=== PATIENT | female | born 1930 | race Caucasian/White ===

== ENCOUNTER 2018-01-06 14:48 | Inpatient (IN) | payer OTHER ==
[2018-01-06] MEDS ORDERED: IPRATROPIUM/ALBUTEROL 3 ML DEYVIAL IH ONE (15:05)
--- NOTE | 2018-01-06 15:09 | EDPHY ---
H & P Time Seen by Provider: 01/06/18 14:58 HPI/ROS: CHIEF COMPLAINT: Shortness of breath, chest discomfort, fatigue HISTORY OF PRESENT ILLNESS: Patient is a 87-year-old female with a history of previous pneumonia who presents emergency department feeling short of breath. She states she has developed a cough 3 days ago. Cough is nonproductive. Patient has also had increased generalized weakness. Mild anterior chest discomfort that is constant. It does not radiate. Patient has sick contacts at home. No measured fever but she feels"cold."No leg pain or swelling. No recent travel. The patient does not smoke. REVIEW OF SYSTEMS: My complete review of systems is negative except as mentioned in the HPI. Past Medical/Surgical History: Includes hypertension, pneumonia Social history: The patient does not smoke Smoking Status: Never smoked Physical Exam: 37.3, 91/53, 73, 20, 88% on room air GENERAL: No acute distress, alert. HEENT: Eyes normal to inspection, normal pharynx, no signs of dehydration. NECK: [No thyromegaly, no lymphadenopathy, supple. RESPIRATORY: Coarse breath sounds bilaterally. Frequent coughing. No rales, rhonchi or wheezing. CVS: Regular rate and rhythm, no rubs, murmurs, or gallops. ABDOMEN: Soft, nontender, nondistended, no organomegaly. BACK: Normal to inspection, no CVA tenderness. SKIN: Normal color, no rash, warm, dry. No pallor. EXTREMITIES: No pedal edema, no calf tenderness, no Homans sign or cords, no joint swelling. NEURO/PSYCH: Alert and oriented x3, normal mood and affect, normal motor sensory exam. Constitutional: Initial Vital Signs Temperature (C) 37.3 C 01/06/18 14:54 Heart Rate 73 01/06/18 14:54 Respiratory Rate 20 01/06/18 14:54 Blood Pressure 91/53 L 01/06/18 14:54 O2 Sat (%) 88 L 01/06/18 14:54 O2 Delivery Mode Nasal Cannula O2 (L/minute) 2 Allergies/Adverse Reactions: Sulfa (Sulfonamide Antibiotics) Allergy (Verified 01/06/18 14:53) Home Medications: Medication Instructions Recorded Unobtainable 01/06/18 Medical Decision Making - Diagnostics Imaging Results: Imaging Impressions Chest X-Ray 01/06/18 14:58 Impression: Elevated right hemidiaphragm with patchy atelectasis of the lung bases bilaterally.. ED Course/Re-evaluation: In the emergency department I discussed possible etiologies with the patient. I answered all her questions. IV was placed. Laboratory studies, EKG and chest x-ray were obtained. Patient was given a DuoNeb. EKG: Sinus rhythm at 80. Normal axis. Normal intervals. There are flipped T- waves in I and aVL. 1518: Lactic acid 1.4. Patient's white count was elevated at 15. Hematocrit was low at 33. Platelets were 382. Patient's sodium was 137. Potassium 4.5. Carbon dioxide was low at 20. Anion gap elevated at 19. BUN was 39 %period% creatinine was 2.1. This is up from her previous creatinine 1.5. BNP was elevated at 1030. Troponin was 0.016 The recheck the patient after the DuoNeb. She states that she feels slightly better. Chest x-ray: Please refer the dictated report. Patient has bilateral atelectasis as read by the radiologist. I was concerned that this could represent bilateral lower lobe infiltrate. I discussed the results with the patient and family. I answered all her questions. Differential Diagnosis: My differential includes but is not limited to pneumonia, bronchitis, empyema, mass, malignancy, influenza, viral illness, bacteremia, sepsis, hypoxia - Data Points Laboratory Results: Laboratory Results 01/06/18 15:10 01/06/18 15:10 01/06/18 01/06/18 01/06/18 15:10 15:10 15:10 WBC 15.13 10^3/uL H 10^3/uL (3.80-9.50) RBC 3.72 10^6/uL L 10^6/uL (4.18-5.33) Hgb 11.4 g/dL L g/dL (12.6-16.3) Hct 33.1 % L % (38.0-47.0) MCV 89.0 fL fL (81.5-99.8) MCH 30.6 pg pg (27.9-34.1) MCHC 34.4 g/dL g/dL (32.4-36.7) RDW 12.2 % % (11.5-15.2) Plt Count 382 10^3/uL 10^3/uL (150-400) MPV 9.0 fL fL (8.7-11.7) Neut % (Auto) 64.5 % % (39.3-74.2) Lymph % (Auto) 23.4 % % (15.0-45.0) Dickenson % (Auto) 9.2 % % (4.5-13.0) Eos % (Auto) 1.7 % % (0.6-7.6) Baso % (Auto) 0.3 % % (0.3-1.7) Nucleat RBC Rel Count 0.0 % % (0.0-0.2) Absolute Neuts (auto) 9.75 10^3/uL H 10^3/uL (1.70-6.50) Absolute Lymphs (auto) 3.54 10^3/uL H 10^3/uL (1.00-3.00) Absolute Monos (auto) 1.39 10^3/uL H 10^3/uL (0.30-0.80) Absolute Eos (auto) 0.26 10^3/uL 10^3/uL (0.03-0.40) Absolute Basos (auto) 0.05 10^3/uL 10^3/uL (0.02-0.10) Absolute Nucleated RBC 0.00 10^3/uL 10^3/uL (0-0.01) Immature Gran % 0.9 % % (0.0-1.1) Immature Gran # 0.14 10^3/uL H 10^3/uL (0.00-0.10) VBG Lactic Acid 1.4 mmol/L mmol/L (0.7-2.1) Sodium 137 mEq/L mEq/L (135-145) Potassium 4.5 mEq/L mEq/L (3.3-5.0) Chloride 98 mEq/L mEq/L (97-110) Carbon Dioxide 20 mEq/l L mEq/l (22-31) Anion Gap 19 mEq/L H mEq/L (8-16) BUN 39 mg/dL H mg/dL (7-23) Creatinine 2.1 mg/dL H mg/dL (0.6-1.0) Estimated GFR 22 Glucose 129 mg/dL H mg/dL (70-100) Calcium 9.6 mg/dL mg/dL (8.5-10.4) Troponin I 0.016 ng/mL ng/mL (0.000-0.034) NT-Pro-B Natriuret Pep 1030 pg/mL H pg/mL (0-450) Medications Given: Discontinued Medications Albuterol/Ipratropium (Duoneb) 3 ml IH EDNOW ONE Stop: 01/06/18 15:06 Last Admin: 01/06/18 15:17 Dose: 3 ml Departure - Departure Disposition: [facility] Inpatient Acute Condition: Good Referrals: Jojo Martinez, [employer] [Primary Care Provider] - As per Instructions
--- NOTE | 2018-01-06 15:14 | CPEKG ---
Heart Rate: 80 RR Interval: 750 P-R Interval: 208 QRSD Interval: 90 QT Interval: 388 QTC Interval: 448 P [place]: 7 QRS [place]: 27 T Wave [place]: 148 EKG Severity - ABNORMAL ECG - EKG Impression: SINUS RHYTHM EKG Impression: PROBABLE INFERIOR INFARCT, OLD EKG Impression: CONSIDER POSTERIOR WALL INVOLVEMENT EKG Impression: LATERAL LEADS ARE ALSO INVOLVED Electronically Signed By: Paco Noel 08-Jan-2018 08:53:50
[2018-01-06 15:19] LABS: PLATELET COUNT 382 10^3/uL (150-400)
[2018-01-06] MEDS ORDERED: NS 500 ML IV ONE (16:44)
[2018-01-06] MEDS ORDERED: ACETAMINOPHEN 325 MG TAB PO PRN (17:20)
--- NOTE | 2018-01-06 17:45 | GHP ---
[f rep st] HISTORY AND PHYSICAL DATE OF ADMISSION: 01/06/2018 CHIEF COMPLAINT: Cough. HISTORY OF PRESENT ILLNESS: This is an 87-year-old female with history of hypertension and pneumonia , who presented to the emergency department with worsening cough. The patient lives with her son who states that she has been coughing for about a week. He had a cold about 2 weeks ago. Since the cou gh started, it has been worsening to the point where she is coughing continuously. She has not been eating or drinking very much. She has not been taking her temperature but has had some chills. Her cough is described as nonproductive. She has some anterior chest discomfort with coughing. PAST MEDICAL HISTORY: Hypertension and cough. Cervical fusion. HOME MEDICATIONS: Refer to [facility] for details. ALLERGIES: Sulfa. SOCIAL HISTORY: She lives with her son in [place]. She denies any tobacco, alcohol, or illicit drug us e. FAMILY HISTORY: Reviewed and noncontributory. REVIEW OF SYSTEMS: Comprehensive 10-point review of systems was done and is negative except for as m entioned in the HPI. PHYSICAL EXAMINATION: VITAL SIGNS: Blood pressure 100/55, pulse 71, respiratory rate 20, O2 saturat ion 93% on 2 L, 88% on room air, temperature 37.4. GENERAL: Ill-appearing. HEAD: Normocephalic, a traumatic. EYES: PERRLA. Sclerae anicteric. MOUTH: Dry oral mucosa. NECK: Supple. No lymphade nopathy. CARDIOVASCULAR: S1, S2. No JVD. No lower extremity edema. PULMONARY: Coarse breath kaleb nds bilaterally with diminished breath sounds in bilateral bases. There is a nonproductive cough. A BDOMEN: Soft, nontender, nondistended. No guarding or rebound tenderness. Normoactive bowel sounds . EXTREMITIES: No clubbing or cyanosis. NEUROLOGIC: Cranial nerves 2-12 grossly intact. No focal motor or sensory deficits. SKIN: Clear, no rashes. DIAGNOSTICS: WBC 15, hemoglobin 11.4, hematocrit 33.1, platelets 382. Venous lactic acid 1.4. [place] um 137, potassium 4.5, chloride 98, CO2 of 20, BUN 39, creatinine 2.1, glucose 129. BNP elevated at 1030. Chest x-ray, which I visualized and personally interpreted, shows elevated right hemidiaphragm with p atchy atelectasis. EKG, visualized and personally interpreted the EKG which showed sinus rhythm, rate 80 beats per minut e. No acute ischemic changes. ASSESSMENT AND PLAN: This 87-year-old female presenting with: 1. Acute hypoxemic respiratory failure due to pneumonia, bacterial versus viral. Plan: The patient will be admitted to the medical/surgical floor. Will order a viral pathogen PCR p nadia. Will also continue empiric treatment for community-acquired pneumonia with levofloxacin. Will add a procalcitonin level. 1. Acute kidney injury. Most likely due to decreased oral intake in the setting of acute illness. 2. Plan: Encourage oral hydration and repeat in the morning. 3. Mild normocytic anemia. 4. Plan: Check iron studies. 5. Elevated BNP without history of coronary artery disease. Plan: Will obtain an echocardiogram to evaluate for congestive heart failure as a component of her a cute hypoxemic respiratory failure. 1. The patient requests to be full code status. /[id number]/MODL
[2018-01-06] MEDS: BENZONATATE 100 MG CAP PO PRN (17:50)
[2018-01-06] MEDS: predniSONE 20 MG TAB PO SCH (18:40)
[2018-01-06] MEDS: ATORVASTATIN CALCIUM 20 MG TAB PO SCH (20:24)
[2018-01-06] MEDS: guaiFENesin 600 MG TAB.ER PO SCH (20:24)
[2018-01-06] MEDS: MIRTAZAPINE 30 MG ODTAB PO SCH (20:24)
[2018-01-06] MEDS: oxyCODONE IR 5 MG TAB PO PRN (20:34)
[2018-01-06] MEDS: ALBUTEROL 3 ML DEYVIAL IH PRN (20:49)
[2018-01-06] MEDS ORDERED: NON-FORMULARY NEW DRUG (Simvastatin [Zocor] 40 MG) PO SCH (21:00)
[2018-01-07] MEDS: oxyCODONE IR 5 MG TAB PO PRN ×3 (02:15→15:57)
[2018-01-07] MEDS: BENZONATATE 100 MG CAP PO PRN ×4 (02:15→21:23)
[2018-01-07 05:19] LABS: PLATELET COUNT 306 10^3/uL (150-400)
--- NOTE | 2018-01-07 05:53 | PDMN ---
Medical Necessity Medical necessity: Pt meets INPT criteria per MD and MCG M-282 Pneumonia, Community Acquired (with acute hypoxemic respiratory failure, RA sat 88%, acute kidney injury, elevated BNP).
[2018-01-07] MEDS ORDERED: CARVEDILOL 25 MG TAB PO SCH (08:00)
[2018-01-07] MEDS: ASPIRIN 81 MG CHEWABLE TAB PO SCH (08:14)
[2018-01-07] MEDS: guaiFENesin 600 MG TAB.ER PO SCH ×2 (08:14→21:23)
[2018-01-07] MEDS: predniSONE 20 MG TAB PO SCH (08:14)
[2018-01-07] MEDS: PANTOPRAZOLE SODIUM 40 MG TAB PO SCH (08:15)
[2018-01-07] MEDS: MULTIVITAMINS 1 EACH TAB PO SCH (08:15)
[2018-01-07] MEDS ORDERED: Herbals/Supplements -Info Only PO SCH (09:00)
[2018-01-07] MEDS ORDERED: ENOXAPARIN 40 MG/0.4 ML SYR SC SCH (09:00)
[2018-01-07] MEDS: ALBUTEROL 3 ML DEYVIAL IH PRN (09:38)
--- NOTE | 2018-01-07 11:16 | HOSPPROG ---
Hospitalist Progress Note Assessment/Plan: AHRF secondary to URI / bronchitis - Viral panel neg, no obvious infiltrate on CXR (pers reviewed/interp). PCT low risk. -cont supportive care with anti-tussives, guaifenesin, will add scheduled nebs plus prn alb nebs -cont levaquin, prednisone -wean O2 as able -pulm toilet per RT SAMUEL on suspected CKD - Baseline Cr ~1.5. Likely pre-renal in setting of acute infection / poor oral intake. Improved this am, Cr 2.1 --> 1.6, near baseline. CAD - CP free. Cont ASA, statin. Holding Coreg due to lowish BP, resume as indicated. Anemia - chronic, stable, no e/o active bleeding DVT PPLX - Lovenox Full code Dispo - cont inpt Subjective: Pt coughing quite a bit, with bronchospasm. No CP. SOB with activity. Not much mucus production. Objective: Vital Signs Temp Pulse Resp BP Pulse Ox 36.7 C 79 36 H 104/68 91 L 01/07/18 08:00 01/07/18 09:38 01/07/18 09:38 01/07/18 08:00 01/07/18 10:30 Laboratory Results 01/07/18 04:28 01/07/18 04:28 01/06/18 01/07/18 01/08/18 05:59 05:59 05:59 Intake Total 2000 Output Total 250 Balance 2000 -250 - Physical Exam Constitutional: no apparent distress Eyes: PERRL Ears, Nose, Mouth, Throat: moist mucous membranes Cardiovascular: regular rate and rhythym Respiratory: no respiratory distress, reduced air movement Gastrointestinal: normoactive bowel sounds, soft, non-tender abdomen Skin: warm Musculoskeletal: full muscle strength Neurologic: AAOx3 Psychiatric: interacting appropriately ICD10 Worksheet Patient Problems: Problems Problem Status Onset Acute hypoxemic respiratory failure Acute - ICD10 Problem Qualifiers (1) Acute hypoxemic respiratory failure
[2018-01-07] MEDS: ENOXAPARIN 30 MG/0.3 ML SYR SC SCH (12:17)
--- NOTE | 2018-01-07 12:49 | ASMTCMCOM ---
CM Note CM Note Notes: Pt admitted last night w/PNA. Pt lives at home w/son. DC needs not clear yet. PT recommending HHC vs SNF depending on progress, awaiting OT rec. Will see how pt progresses. CM will follow. Date Signed: 01/07/2018 12:48 PM Electronically Signed By:Mckenzie Pierce RN
[2018-01-07] MEDS: ALBUTEROL 3 ML DEYVIAL IH SCH ×3 (16:21→20:19)
[2018-01-07] MEDS: ATORVASTATIN CALCIUM 20 MG TAB PO SCH (21:23)
[2018-01-07] MEDS: MIRTAZAPINE 30 MG ODTAB PO SCH (21:23)
[2018-01-08] MEDS: ALBUTEROL 3 ML DEYVIAL IH SCH ×4 (05:32→21:15)
[2018-01-08] MEDS: ENOXAPARIN 30 MG/0.3 ML SYR SC SCH (08:49)
[2018-01-08] MEDS: PANTOPRAZOLE SODIUM 40 MG TAB PO SCH (08:50)
[2018-01-08] MEDS: ASPIRIN 81 MG CHEWABLE TAB PO SCH (08:50)
[2018-01-08] MEDS: predniSONE 20 MG TAB PO SCH (08:50)
[2018-01-08] MEDS: guaiFENesin 600 MG TAB.ER PO SCH ×2 (08:50→20:25)
[2018-01-08] MEDS: BENZONATATE 100 MG CAP PO PRN ×3 (08:50→20:25)
[2018-01-08] MEDS: MULTIVITAMINS 1 EACH TAB PO SCH (08:50)
--- NOTE | 2018-01-08 09:23 | HOSPPROG ---
Hospitalist Progress Note Assessment/Plan: AHRF secondary to URI / bronchitis - 5 LPM --> 2 LPM. Viral panel neg, but clinically seems viral, also consider allergy induced. No obvious infiltrate on CXR (pers reviewed/interp). PCT low risk. -cont supportive care with anti-tussives, guaifenesin, scheduled plus prn nebs -add zyrtec for possible allergic component -cont levaquin, prednisone -wean O2 as able -pulm toilet per RT SAMUEL on suspected CKD - Baseline Cr ~1.5. Likely pre-renal in setting of acute infection / poor oral intake. Improved, Cr 2.1 --> 1.6, near baseline. CAD - CP free. Cont ASA, statin. Holding Coreg due to lowish BP, resume as indicated. Anemia - chronic, stable, no e/o active bleeding DVT PPLX - Lovenox Full code Dispo - cont inpt due to ongoing hypoxemia Subjective: Pt feels a little better this am. Coughing less, but develops bronchospasm and increased coughing when she is engaged / talking. No fevers/ chills. No CP. Eating breakfast up in chair. Objective: Vital Signs Temp Pulse Resp BP Pulse Ox 36.8 C 74 18 90/54 L 93 01/08/18 07:16 01/08/18 07:16 01/08/18 07:16 01/08/18 07:16 01/08/18 07:16 Laboratory Results 01/07/18 04:28 01/07/18 04:28 01/07/18 01/08/18 01/09/18 05:59 05:59 05:59 Intake Total 1999 500 Output Total 250 Balance 1999 250 - Physical Exam Constitutional: no apparent distress Eyes: PERRL Ears, Nose, Mouth, Throat: moist mucous membranes Cardiovascular: regular rate and rhythym Respiratory: no respiratory distress, clear to auscultation Gastrointestinal: normoactive bowel sounds, soft, non-tender abdomen Skin: warm Musculoskeletal: full muscle strength Neurologic: AAOx3 Psychiatric: interacting appropriately ICD10 Worksheet Patient Problems: Problems Problem Status Onset Acute hypoxemic respiratory failure Acute - ICD10 Problem Qualifiers (1) Acute hypoxemic respiratory failure
[2018-01-08] MEDS: CETIRIZINE 10 MG TAB PO SCH (12:07)
[2018-01-08] MEDS: MIRTAZAPINE 30 MG ODTAB PO SCH (20:25)
[2018-01-08] MEDS: ATORVASTATIN CALCIUM 20 MG TAB PO SCH (20:25)
[2018-01-08] MEDS: oxyCODONE IR 5 MG TAB PO PRN (22:47)
[2018-01-09] MEDS: ALBUTEROL 3 ML DEYVIAL IH SCH ×4 (05:44→20:42)
[2018-01-09] MEDS: BENZONATATE 100 MG CAP PO PRN (07:39)
[2018-01-09] MEDS ORDERED: ONDANSETRON 4 MG/2 ML VIAL IVP PRN (07:53)
[2018-01-09] MEDS ORDERED: ONDANSETRON DISINTEGRATING 4 MG TAB PO PRN (07:53)
[2018-01-09] MEDS ORDERED: HYDROCODONE/APAP 5/325 TAB PO PRN (08:17)
[2018-01-09] MEDS: ENOXAPARIN 30 MG/0.3 ML SYR SC SCH (08:38)
[2018-01-09] MEDS: PANTOPRAZOLE SODIUM 40 MG TAB PO SCH (08:38)
[2018-01-09] MEDS: ASPIRIN 81 MG CHEWABLE TAB PO SCH (08:38)
[2018-01-09] MEDS: CETIRIZINE 10 MG TAB PO SCH (08:38)
[2018-01-09] MEDS: predniSONE 20 MG TAB PO SCH (08:38)
[2018-01-09] MEDS: MULTIVITAMINS 1 EACH TAB PO SCH (08:38)
[2018-01-09] MEDS: guaiFENesin 600 MG TAB.ER PO SCH ×2 (08:44→20:51)
[2018-01-09] MEDS: GUAIFENESIN/DM 10 ML UDCUP PO PRN (08:44)
--- NOTE | 2018-01-09 11:04 | ECHO ---
[email or web address] [address] Main: [phone] Fax: Transthoracic Echocardiogram Name: DORIS WALTER MR#: [id number] Study Date: 01/09/2018 Study Time: 09:58 AM Date of : 1930 Age: 87 year(s) Height: 160 cm (63 in.) Weight: 59.42 kg (131 lb.) BSA: 1.62 m2 Gender: Female Examination: Echo Indication: PNA, Cough, HF Image Quality: Contrast: Requested by: Vicente Dash BP: 153 mmHg/88 mmHg Heart Rate: Rhythm: Indication: PNA, Cough, HF Procedure Staff Calendar Control Clerk Blood Bank: Slim Blake RDCS Reading Physician: Milad Ybarra MD Requesting Provider: Conclusions: No pericardial effusion. Concentric left ventricular hypertrophy with hypercontractile left ventricle. Ejection fraction in excess of 70%. Tissue Doppler suggests elevated filling pressures. Measurements: Chambers Valvular Assessment AV/MV Valvular Assessment TV/PV Normal Normal Normal Name Value Range Name Value Range Name Value Range Ao Michelle (MM): 2.5 cm (2.2 cm-3.7 AV Vmax: 1.24 m/s (1 m/s-1.7 TR Vmax: 2.16 mm/s ( - ) cm) m/s) TR PGmax: 19 mmHg ( - ) IVSd (2D): 1.2 cm (0.6 cm-1.1 AV maxP mmHg ( - ) syst. PAP: 24 mmHg ( - ) cm) LVOT Vmax: 0.78 m/s (0.7 m/s-1.1 PV Vmax: 0.76 m/s (0.6 m/s-0.9 LVDd (2D): 3.7 cm (3.9 cm-5.3 m/s) m/s) cm) MV E Vmax: 0.51 m/s ( - ) PV PGmax: 2 mmHg ( - ) LVDs (2D): 2.4 cm (2.1 cm-4 MV A Vmax: 0.82 m/s ( - ) cm) MV E/A: 0.62 ( - ) LVPWd (2D): 1.1 cm ( - ) LVEF (2D): 65 (>=54 %) Continued Measurements: Chambers Valvular Assessment AV/MV Valvular Assessment TV/PV Name Value Name Value Name Value LADs Lon.9 cm MV E' Septal: 0.03 m/s CVP (est.): 5 mmHg LA Area: 13.9 cm2 MV E/E' Septal: 17.40 LA Volume: 42 ml MV E/E' Lateral: 12.40 LA Volume Index: 25.9 ml/m2 Findings: Left Ventricle: Patient: DORIS WALTER Study Date: 01/09/2018 Page 1 of 2 09:58 AM Normal size left ventricle. Mild concentric LV hypertrophy. Global hypercontractility of the left ventricle. EF is 65 %. No regional wall motion abnormality. Diastolic dysfunction is present. . Right Ventricle: Normal size right ventricle. Left Atrium: The left atrium is normal in size. Right Atrium: The right atrium is normal in size. Mitral Valve: The mitral valve is normal in appearance and function. Trivial mitral valve regurgitation. Aortic Valve: The aortic valve is tri-leaflet. Trivial aortic valve regurgitation. Tricuspid Valve: The tricuspid valve is normal in appearance and function. Trivial tricuspid valve regurgitation. Pulmonic Valve: The pulmonic valve is normal in appearance and function. Aorta: The aorta is normal. Pericardium: No pericardial effusion. (No Signature Object) Patient: DORIS WALTER Study Date: 01/09/2018 Page 2 of 2 09:58 AM [id number]
--- NOTE | 2018-01-09 11:43 | ASMTCMCOM ---
CM Note CM Note Notes: Spoke w/pt re; dc poc. PT/OT recommend SNF, pt is agreeable and would like me also to discuss with her son Sumeet, who lives with her. CM called son and he would like referrals sent to [facility] Plan: SNF Date Signed: 01/09/2018 11:43 AM Electronically Signed By:Jody Dang RN
--- NOTE | 2018-01-09 14:44 | HOSPPROG ---
Hospitalist Progress Note Assessment/Plan: AHRF secondary to URI / bronchitis - 5 LPM --> 2 LPM. Viral panel neg, but clinically seems viral, also consider allergy induced. No obvious infiltrate on CXR (pers reviewed/interp). PCT low risk. -cont supportive care: anti-tussives, guaifenesin, scheduled plus prn nebs, adding robitussin and low dose hydrocodone today given persistent coughing -added zyrtec for possible allergic component -cont levaquin, prednisone -wean O2 as able -echo reviewed, EF 65%, +diastolic dysfunction SAMUEL on suspected CKD - Baseline Cr ~1.5. Likely pre-renal in setting of acute infection / poor oral intake. Improved, Cr 2.1 --> 1.6, near baseline. CAD - CP free. Cont ASA, statin. Holding Coreg due to lowish BP, resume as indicated. Anemia - chronic, stable, no e/o active bleeding DVT PPLX - Lovenox Full code Dispo - cont inpt due to ongoing hypoxemia Subjective: Pt continues to have persistent cough and bronchospasm. No fevers. Fair po intake. Objective: Vital Signs Temp Pulse Resp BP Pulse Ox 36.9 C 70 18 153/88 H 96 01/09/18 08:00 01/09/18 10:18 01/09/18 10:18 01/09/18 08:00 01/09/18 10:18 Laboratory Results 01/07/18 04:28 01/07/18 04:28 01/08/18 01/09/18 01/10/18 05:59 05:59 05:59 Intake Total 500 500 Output Total 250 Balance 250 500 - Physical Exam Constitutional: no apparent distress Eyes: PERRL Ears, Nose, Mouth, Throat: moist mucous membranes Cardiovascular: regular rate and rhythym Respiratory: no respiratory distress, reduced air movement Gastrointestinal: normoactive bowel sounds, soft, non-tender abdomen Skin: warm Musculoskeletal: full muscle strength Neurologic: AAOx3 Psychiatric: interacting appropriately ICD10 Worksheet Patient Problems: Problems Problem Status Onset Acute hypoxemic respiratory failure Acute - ICD10 Problem Qualifiers (1) Acute hypoxemic respiratory failure
[2018-01-09] MEDS: CARVEDILOL 3.125 MG TAB PO SCH (18:38)
[2018-01-09] MEDS: MIRTAZAPINE 30 MG ODTAB PO SCH (20:51)
[2018-01-09] MEDS: ATORVASTATIN CALCIUM 20 MG TAB PO SCH (20:51)
[2018-01-10] MEDS: ALBUTEROL 3 ML DEYVIAL IH SCH ×4 (06:00→21:25)
[2018-01-10] MEDS: ENOXAPARIN 30 MG/0.3 ML SYR SC SCH (08:14)
[2018-01-10] MEDS: guaiFENesin 600 MG TAB.ER PO SCH ×2 (08:16→20:36)
[2018-01-10] MEDS: ASPIRIN 81 MG CHEWABLE TAB PO SCH (08:17)
[2018-01-10] MEDS: MULTIVITAMINS 1 EACH TAB PO SCH (08:17)
[2018-01-10] MEDS: predniSONE 20 MG TAB PO SCH (08:17)
[2018-01-10] MEDS: CETIRIZINE 10 MG TAB PO SCH (08:17)
[2018-01-10] MEDS: CARVEDILOL 3.125 MG TAB PO SCH ×2 (08:17→17:37)
[2018-01-10] MEDS: PANTOPRAZOLE SODIUM 40 MG TAB PO SCH (08:18)
--- NOTE | 2018-01-10 08:25 | HOSPPROG ---
Hospitalist Progress Note Assessment/Plan: 87 y/o F PMH htn, p/w cough and URI symptoms 1-2 weeks [employer]. Noted chills. O2 sats 88% on arrival. AHRF secondary to URI / bronchitis - 5 LPM --> 2 LPM. Viral panel neg, but clinically seems viral, also consider allergy induced. No obvious infiltrate on CXR (pers reviewed/interp). PCT low risk. -cont supportive care: anti-tussives, guaifenesin, scheduled plus prn nebs, robitussin and low dose hydrocodone given persistent coughing -added zyrtec for possible allergic component -cont levaquin, prednisone -wean O2 as able -echo reviewed, EF 65%, +diastolic dysfunction SAMUEL on suspected CKD - Baseline Cr ~1.5. Likely pre-renal in setting of acute infection / poor oral intake. Improved, Cr 2.1 --> 1.6, near baseline. CAD - CP free. Cont ASA, statin. Resumed Coreg due to elevated BP which may need titration Anemia - chronic, stable, no e/o active bleeding DVT PPLX - Lovenox Full code ADD - awaiting placement. Subjective: Still coughing. Feels weak. Objective: Vital Signs Temp Pulse Resp BP Pulse Ox 98.7 F 70 16 141/70 H 90 L 01/09/18 22:10 01/09/18 22:10 01/09/18 22:10 01/09/18 22:10 01/09/18 22:10 Laboratory Results 01/07/18 04:28 01/07/18 04:28 01/09/18 01/10/18 01/11/18 05:59 05:59 05:59 Intake Total 500 400 Balance 500 400 - Physical Exam Constitutional: no apparent distress Ears, Nose, Mouth, Throat: moist mucous membranes Cardiovascular: regular rate and rhythym, no murmur, rub, or gallop Respiratory: reduced air movement, bronchial breath sounds Gastrointestinal: normoactive bowel sounds, soft, non-tender abdomen Genitourinary: no bladder fullness Skin: warm, normal color Psychiatric: interacting appropriately, not anxious ICD10 Worksheet Patient Problems: Problems Problem Status Onset Acute hypoxemic respiratory failure Acute
[2018-01-10] MEDS: GUAIFENESIN/DM 10 ML UDCUP PO PRN ×2 (08:46→17:40)
[2018-01-10] MEDS: BENZONATATE 100 MG CAP PO PRN (14:05)
--- NOTE | 2018-01-10 15:17 | ASMTCMCOM ---
CM Note CM Note Notes: Received call from pt's son, Sumeet, they have chosen [facility] for SNF. Pt may dc tomorrow, admissions person at [facility] notified. DC Plan: SNF/ [facility] Date Signed: 01/10/2018 03:16 PM Electronically Signed By:Jody Dang RN
[2018-01-10] MEDS: MIRTAZAPINE 30 MG ODTAB PO SCH (20:37)
[2018-01-10] MEDS: ATORVASTATIN CALCIUM 20 MG TAB PO SCH (20:37)
[2018-01-11] MEDS: ALBUTEROL 3 ML DEYVIAL IH SCH ×2 (05:22→11:14)
[2018-01-11 08:27] VITALS: BP 151/87
[2018-01-11] MEDS: PANTOPRAZOLE SODIUM 40 MG TAB PO SCH (09:34)
[2018-01-11] MEDS: guaiFENesin 600 MG TAB.ER PO SCH (09:34)
[2018-01-11] MEDS: ASPIRIN 81 MG CHEWABLE TAB PO SCH (09:34)
[2018-01-11] MEDS: ENOXAPARIN 30 MG/0.3 ML SYR SC SCH (09:35)
[2018-01-11] MEDS: CETIRIZINE 10 MG TAB PO SCH (09:35)
[2018-01-11] MEDS: CARVEDILOL 3.125 MG TAB PO SCH (09:35)
[2018-01-11] MEDS: MULTIVITAMINS 1 EACH TAB PO SCH (09:35)
[2018-01-11] MEDS: predniSONE 20 MG TAB PO SCH (09:35)
--- NOTE | 2018-01-11 09:45 | PDIAF ---
- Diagnosis Code Status: Full Code - Medication Management Discharge Medications: Medications to Continue on Transfer Aspirin [Aspirin 81mg (*)] 81 mg PO DAILY 01/06/18 [Last Taken Unknown] Carvedilol [Coreg (*)] 25 mg PO BIDMEAL 01/06/18 [Last Taken Unknown] Herbals/Supplements -Info Only 1 ea PO DAILY 01/06/18 [Last Taken Unknown] Mirtazapine [Remeron Soltab 30 mg (*)] 30 mg PO HS 01/06/18 [Last Taken 01/05/18 ] Multivitamins [Multivitamin (*)] 1 each PO DAILY 01/06/18 [Last Taken Unknown] Pantoprazole Sodium [Protonix 40mg (*)] 40 mg PO DAILY 01/06/18 [Last Taken ] Simvastatin [Zocor] 40 mg PO HS 01/06/18 [Last Taken 01/06/18] oxyCODONE/APAP 5/325 [Percocet 5/325 (*)] 1 - 2 tab PO Q4H PRN 01/06/18 [Last Taken 01/05/18] Acetaminophen [Tylenol 325mg (*)] 650 mg PO Q6 PRN tab 01/11/18 [Last Taken Unknown] Albuterol [Proventil Neb] 3 ml IH Q4HRS PRN deyvial 01/11/18 [Last Taken Unknown] Benzonatate [Tessalon Pearles] 100 mg PO TID PRN cap 01/11/18 [Last Taken Unknown] Cetirizine [ZyrTEC 10 mg (*)] 10 mg PO DAILY tab 01/11/18 [Last Taken Unknown] guaiFENesin/DEXTROMETHORPHAN [Robitussin Dm Oral Liquid (*)] 10 ml PO Q4HRS PRN ml 01/11/18 [Last Taken Unknown] predniSONE 40 mg PO DAILY #2 tablet 01/11/18 [Last Taken Unknown] Discharge Medications: Refer to the Discharge Home Medication list for PRN reason. - Orders Services needed: Physical Therapy, Occupational Therapy, Speech Language Pathologist Isolation Type: None Diet Recommendation: cardiac -low fat low salt Diet Texture: Regular Texture Diet - Labs/Radiology BMP Date: 01/14/18 - Follow Up Care Current Providers and Referrals: Jojo Martinez NP [Primary Care Provider] - As per Instructions
--- NOTE | 2018-01-11 15:57 | ASDISCHSUM ---
Discharge Information Plan Status:SNF Medically Cleared to Leave:01/11/2018 Discharge Date:01/11/2018 01:11 PM CM D/C Disposition: ADT D/C Disposition:Detention Facility Projected Discharge Date:01/11/2018 11:00 AM Transportation at D/C: Discharge Delay Reason: Follow-Up Date:01/11/2018 11:00 AM Discharge Slot: Final Diagnosis: Placement Information Referral Type:*Fdc/SNF Referral ID:[id number] Provider Name:[facility] Address 1:[address] [facility] Address 2: City:[place] Selection Factors: State:[place] Patient Contact Information Contact Name:PINA Relationship:Son Address:[address] City:[place] Phone: State/Zip Code:[place] [address] Email: Financial Information Financial Class:Medicare Advantage Plans Primary Plan Desc:[employer] MED[employer]AR[employer]OMPLETE Primary Plan Number:[id number] Secondary Plan Desc: Secondary Plan Number: Assessment Information [facility] CM Progress Note CM Note CM Note Notes: Pt admitted last night w/PNA. Pt lives at home w/son. DC needs not clear yet. PT recommending HHC vs SNF depending on progress, awaiting OT rec. Will see how pt progresses. CM will follow. Date Signed: 01/07/2018 12:48 PM Electronically Signed By:Mckenzie Pierce RN [facility] CM Progress Note CM Note CM Note Notes: Spoke w/pt re; dc poc. PT/OT recommend SNF, pt is agreeable and would like me also to discuss with her son Sumeet, who lives with her. CM called son and he would like referrals sent to [facility] DC Plan: SNF Date Signed: 01/09/2018 11:43 AM Electronically Signed By:Jody Dang RN [facility] CM Progress Note CM Note CM Note Notes: Received call from pt's son, Sumeet, they have chosen [facility] for SNF. Pt may dc tomorrow, admissions person at [facility] notified. DC Plan: SNF/ [facility] Date Signed: 01/10/2018 03:16 PM Electronically Signed By:Jody Dang RN Case Management Discharge Plan Note Case Management Discharge Discharge Order Complete? Answers: Yes Patient to Obtain Answers: Other Notes: [facility] Medications Transportation Arranged Answers: Other Notes: [facility] Transport will Pick (Date 01/11/2018 01:00 PM & Time) EMTALA Complete Answers: No Case Management Transport Answers: Yes Form Complete Faxed Final Orders Answers: Yes Agency/Facility Transfer Answers: Yes Report Printed & Faxed to Receiving Agency Family Notified Answers: Yes Discharge Comments Notes: MYRIAM spoke w/ NAM Watson and ANGELINA Valladares regarding d/c POC. Pt is being discharged today. MYRIAM coodinated d/c with Ani at [facility]. Ani is requesting that pts family bring in pts insurance card. DC orders sent to [facility]. CM provided ANGELINA Mckeon w/ phone number to give report. CM left a messages w/ Sumeet informing him that pt is being discharged and requesting that he brings pts insurance card to [facility]. CM available for changes. Plan: [facility] Date Signed: 01/11/2018 10:26 AM Electronically Signed By:LAMAR Link Intervention Information
--- NOTE | 2018-01-11 16:32 | GDS ---
[f rep st] DISCHARGE SUMMARY DISCHARGE DIAGNOSES: 1. Acute hypoxic respiratory failure secondary to upper respiratory infection and bronchitis. 2. Upper respiratory infection/bronchitis. 3. Acute kidney injury with likely underlying chronic kidney disease. 4. History of coronary artery disease in the past. 5. History of chronic stable anemia. 6. History of hypertension. 7. History of cervical fusion. PROCEDURES: 1. Chest x-ray. 2. Echocardiogram. CONSULTATIONS: None. BRIEF HISTORY: Please see dictated H and P for complete details. In brief, the patient is an 87-yea r-old female with a history of hypertension and CAD, who presented with worsening cough with URI symp toms 1-2 weeks prior to admission. She was found to be hypoxic on room air. Chest x-ray showed elev ated left hemidiaphragm with patchy atelectasis of the lung bases bilaterally, but no evidence of ove rt pneumonia. She was treated with supportive therapies and started on Levaquin. On day of discharg e, she was sating well on room air. HOSPITAL COURSE BY PROBLEM: 1. Acute hypoxic respiratory failure. Room air saturations have normalized. She will be continued on supportive therapies on discharge. 2. URI and bronchitis. She will be discharged on antitussives, Robitussin, and Zyrtec for possible allergic component. 3. Acute kidney injury on suspected chronic kidney disease. Her creatinine has improved to near base line at 1.6 at time of discharge. PHYSICAL EXAM: VITAL SIGNS: On day of discharge, blood pressure 151/87, heart rate of 78, respirati ons 18, O2 saturation 94% on 1 L/min. GENERAL: She is a pleasant female in no apparent distress. HE ENT: Head is normocephalic, atraumatic. Eyes are without scleral icterus. HEART: Regular rate and rhythm. LUNGS: Mildly diminished. RESULTS PENDING: None. DIET: Per previous. ACTIVITY: Per PT and OT at SNF rehab. DISCHARGE MEDICATIONS: Please see med reconciliation. FOLLOWUP INSTRUCTIONS: Follow up with PCP in 1 week's time. /[id number]/MODL
== END 2018-01-11 13:11 | DRG 189 ==
LOC: SUPCPDRO 14:48 → OBSVTOIN 16:45 → F1N 17:35 → F3E 01-07 18:30
PROVIDERS: ADMIT Family Medicine; ATTEND Internal Medicine
DX: J96.01 Acute respiratory failure with hypoxia (principal); J20.9 Acute bronchitis, unspecified; N17.9 Acute kidney failure, unspecified; N18.9 Chronic kidney disease, unspecified; D64.9 Anemia, unspecified; I25.10 Atherosclerotic heart disease of native coronary artery without angina pectoris; I10 Essential (primary) hypertension; Z98.1 Arthrodesis status
CPT/HCPCS: 97110-GP; 97116-GP; 97161-GP; 97165-GO; 97530-GP; 97535-GO; G8978-GP-CJ; G8979-GP-CI; G8987-GO-CK; G8988-GO-CI; J1650; J1956; J7512; J7613

== ENCOUNTER 2018-08-14 12:32 | Inpatient (IN) | payer OTHER ==
[2018-08-14] MEDS ORDERED: NS 500 ML IV ONE ×3 (12:39→13:45)
[2018-08-14] MEDS ORDERED: ONDANSETRON 4 MG/2 ML VIAL IVP ONE (12:56)
--- NOTE | 2018-08-14 13:18 | EDPHY ---
H & P Stated Complaint: 2days of vomiting . sent over for fluids. Source: Patient Exam Limitations: No limitations - Personal History Current Tetanus/Diphtheria Vaccine: Unsure Current Tetanus Diphtheria and Acellular Pertussis (TDAP): Unsure - Medical/Surgical History Hx Asthma: No Hx Chronic Respiratory Disease: No Hx Diabetes: No Hx Cardiac Disease: No Hx Renal Disease: No Hx Cirrhosis: No Hx Alcoholism: No Hx HIV/AIDS: No Hx Splenectomy or Spleen Trauma: No Other PMH: HTN; chronic back pain, denies Dx - Social History Smoking Status: Never smoked Alcohol Use: None Drug Use: None Time Seen by Provider: 08/14/18 12:38 HPI/ROS: This patient complains of vomiting and ongoing nausea. She describes concurrent onset of periumbilical discomfort and vomiting 2 days ago with persistent symptoms today. She was seen at Dr. Elder office, her primary care physician and noted to have low blood pressure there sent to emergency department for workup and treatment. Patient reports associated 5/10 frontal headache achy in nature similar to headache she has had in the past but it has been many years she states. She states her periumbilical discomfort is 5/10 achy in nature also similar to prior pains that she has had. She is accompanied by her sister who drove her in for evaluation. ROS: Constitutional: No high fevers or chills Neuro: Frontal headache with no recent head injury. No numbness tingling or focal weakness. She denies any acute confusion. HEENT: No nasal congestion or sore throat. Pulmonary: Mild dyspnea over the past 24 hr. No coughing. Cardiovascular: She reports some lightheadedness today. No chest pain. No heart palpitations. No leg swelling. GI: As per HPI. No distension. Last bowel movement was normal in consistency 2 days ago. It is, for her to go 2 days without a bowel movement she reports. : She reports dysuria that she feels is chronic for her. No flank pain. Endocrine: No diaphoresis 10 point review of symptoms is performed and otherwise negative with exception of pertinent positives and negatives listed in HPI and ROS (Freedom Cody) - Physical Exam Exam: General Appearance: Pleasant 88-year-old female Alert, no distress. Eyes: Pupils equal and round no pallor or injection. ENT, Mouth: Mucous membranes moist. She has frontal sinus tenderness to percussion. Respiratory: There are no retractions, lungs are clear to auscultation. Cardiovascular: Regular rate and rhythm. No murmur gallop rub. No peripheral edema. No JVD Gastrointestinal: Abdomen is soft and nontender, no masses, bowel sounds normal. Neurological: GCS 15. Skin: Warm and dry, no rashes. Musculoskeletal: Neck is supple nontender. Extremities are symmetrical, full range of motion. Psychiatric: Mood and affect are normal DIFFERENTIAL DIAGNOSIS: After history and physical exam differential diagnosis was considered for acute sinusitis, subdural hemorrhage, pneumonia, pneumothorax , myocardial ischemic disease, diverticulitis, UTI (Freedom Cody) Constitutional: Initial Vital Signs Temperature (C) 36.7 C 08/14/18 12:44 Heart Rate 61 08/14/18 12:44 Respiratory Rate 20 08/14/18 12:44 Blood Pressure 102/60 08/14/18 12:44 O2 Sat (%) 95 08/14/18 12:44 O2 Delivery Mode Room Air Allergies/Adverse Reactions: Sulfa (Sulfonamide Antibiotics) Allergy (Verified 08/14/18 12:49) Home Medications: Medication Instructions Recorded Aspirin [Aspirin 81mg (*)] 81 mg PO DAILY 01/06/18 Carvedilol [Coreg (*)] 25 mg PO BIDMEAL 01/06/18 Herbals/Supplements -Info Only 1 ea PO DAILY 01/06/18 Multivitamins [Multivitamin (*)] 1 each PO DAILY 01/06/18 Pantoprazole Sodium [Protonix 40mg 40 mg PO DAILY 01/06/18 (*)] Simvastatin [Zocor] 40 mg PO HS 01/06/18 Acetaminophen [Tylenol 325mg (*)] 650 mg PO Q6 PRN tab 01/11/18 Albuterol [Proventil Neb] 3 ml IH Q4HRS PRN deyvial 01/11/18 Benzonatate [Tessalon Pearles] 100 mg PO TID PRN cap 01/11/18 Cetirizine [ZyrTEC 10 mg (*)] 10 mg PO DAILY tab 01/11/18 guaiFENesin/DEXTROMETHORPHAN 10 ml PO Q4HRS PRN ml 01/11/18 [Robitussin Dm Oral Liquid (*)] Mirtazapine [Remeron] 30 mg PO HS 08/14/18 oxyCODONE HCL/ACETAMINOPHEN 1 each PO Q6H PRN 08/14/18 [Percocet 10-325 mg Tablet] Medical Decision Making - Diagnostics EKG Interpretation: 12 lead EKG performed shortly after arrival at 09/30/2021 reveals sinus rhythm at approximately 60-intervals grossly normal by my interpretation. Overall assessment sinus rhythm with inferior Q-waves question old inferior NH no acute ST abnormalities. When compared to an old EKG dated 01/06/2018 appreciate no significant interval change. (Freedom Cody) ED Course/Re-evaluation: Influenza negative. Straight cath urine dip pos leuks, sp grav 103 Lactic Acid 3.9 A second liter of normal saline ordered Blood cultures ordered, drawn and sent UA, urine culture ordered to be sent Pt given additional 325 mg acetaminophen for spiking temp. Pt given Ceftriaxone 1 gm IVPB for likely urosepsis, additionally would give partial coverage for CAP. Pt markedly improved with fluids and acetaminophen, comfortable , no longer with resp distress. Imp Urospesis, Dehydration SAMUEL , I do not know her baseline creatinine. Plan Continue with admit and transfer to [facility] Awaiting ambulance for transfer. (Jacquelyn Guajardo) IV normal saline bolus Zofran IV with resolution of nausea and vomiting I reviewed CT images of head and appreciate no significant abnormalities. Ordered Tylenol for patient's frontal headache Review of labs reveals elevated creatinine to 2.7 indicating acute kidney injury. CBC reveals significantly elevated white blood cell count greater than 18,000 Will pursue catheterized urine and chest x-ray given this finding Lactate-venous added on impending I spoke with Dr. Munroe-hospitalist at [facility] who accepts this patient for transfer for acute kidney injury and dehydration. At this time her findings are most consistent with viral gastroenteritis complicated by acute kidney injury, however with significantly elevated white count, workup pending to rule out UTI, or pneumonia Patient returned from chest x-ray and seem to have some respiratory distress to our staff-the tech who was in the room at the time. Her son feels that she was emotionally upset from realizing she has ago to the hospital. On my examination she is tachypneic and slightly pale with rhonchi bilaterally. Review of chest x-ray reveals no focal infiltrates by my interpretation. It influenza swabs added and cath urine specimen is pending. I spoke with Dr. Mary denton regarding this patient's pending workup. She will follow up on final studies and finalize disposition. (Freedom Cody) - Data Points Medications Given: Acetaminophen (Tylenol) 650 mg PO Q4HRS PRN PRN Reason: Pain, Mild/Fever, Can Take PO Stop: 02/10/19 21:35 Last Admin: 08/15/18 20:16 Dose: 650 mg Aspirin (Aspirin) 81 mg PO DAILY FRANCISCA Stop: 02/11/19 08:59 Last Admin: 08/16/18 09:38 Dose: 81 mg Atorvastatin Calcium (Lipitor) 20 mg PO HS FRANCISCA Stop: 02/10/19 20:59 Last Admin: 08/16/18 21:36 Dose: 20 mg Cetirizine HCl (Zyrtec) 10 mg PO DAILY FRANCISCA Stop: 02/11/19 08:59 Last Admin: 08/16/18 09:38 Dose: 10 mg Guaifenesin/Dextromethorphan (Robitussin Dm Oral Liquid) 10 ml PO Q4HRS PRN PRN Reason: Cough, Moderate Stop: 02/10/19 21:37 Last Admin: 08/15/18 20:16 Dose: 10 ml Heparin Sodium (Porcine) (Heparin Sc Injection) 5,000 unit SC Q8 FRANCISCA Stop: 02/10/19 21:59 Last Admin: 08/16/18 21:38 Dose: 5,000 unit Sodium Chloride (Ns) 1,000 mls @ 75 mls/hr IV CONT FRANCISCA Stop: 08/17/18 03:04 Last Admin: 08/16/18 13:51 Dose: 1,000 mls Midodrine (Proamatine) 10 mg PO Q8H FRANCISCA Stop: 02/12/19 21:59 Last Admin: 08/16/18 22:29 Dose: 10 mg Mirtazapine (Remeron) 30 mg PO HS FRANCISCA Stop: 02/10/19 21:44 Last Admin: 08/16/18 21:37 Dose: 30 mg Ondansetron HCl (Zofran) 4 mg IVP Q4HRS PRN PRN Reason: Nausea/Vomiting, Can't Take PO Stop: 02/10/19 21:35 Last Admin: 08/16/18 16:15 Dose: 4 mg Pantoprazole Sodium (Protonix) 40 mg PO DAILY FRANCISCA Stop: 02/11/19 08:59 Last Admin: 08/16/18 09:38 Dose: 40 mg Discontinued Medications Acetaminophen (Tylenol) 650 mg PO EDNOW ONE Stop: 08/14/18 14:19 Last Admin: 08/14/18 14:44 Dose: 650 mg Acetaminophen (Tylenol) 325 mg PO EDNOW ONE Stop: 08/14/18 15:54 Last Admin: 08/14/18 16:05 Dose: 325 mg Sodium Chloride (Ns) 500 mls @ 1,000 mls/hr IV EDNOW ONE PRN Reason: Protocol Stop: 08/14/18 13:08 Last Admin: 08/14/18 13:33 Dose: Not Given Sodium Chloride (Ns) 500 mls @ 1,500 mls/hr IV ONCE ONE Stop: 08/14/18 13:49 Last Admin: 08/14/18 13:32 Dose: 500 mls Sodium Chloride (Ns) 500 mls @ 1,500 mls/hr IV ONCE ONE Stop: 08/14/18 14:04 Last Admin: 08/14/18 13:45 Dose: 500 mls Ceftriaxone Sodium/Dextrose (Rocephin 1 Gm (Premix)) 50 mls @ 100 mls/hr IV EDNOW ONE PRN Reason: Protocol Stop: 08/14/18 16:21 Last Admin: 08/14/18 16:11 Dose: 50 mls Sodium Chloride (Ns) 1,000 mls @ 0 mls/hr IV ONCE ONE PRN Reason: Wide Open Stop: 08/14/18 15:55 Last Admin: 08/14/18 16:05 Dose: 1,000 mls Sodium Chloride (Ns) 1,000 mls @ 0 mls/hr IV ONCE ONE; Wide Open PRN Reason: Protocol Stop: 08/14/18 17:51 Last Admin: 08/14/18 17:50 Dose: 1,000 mls Sodium Chloride (Ns) 1,000 mls @ 3,000 mls/hr IV ONCE ONE Stop: 08/14/18 21:55 Last Admin: 08/14/18 22:09 Dose: 1,000 mls Norepinephrine 4 mg/ Sodium (Chloride) 504 mls @ 0 mls/hr IV CONT FRANCISCA; Per Protocol PRN Reason: Protocol Stop: 02/11/19 01:29 Last Admin: 08/15/18 16:38 Dose: 504 mls Ertapenem 1 gm/ Sodium (Chloride) 100 mls @ 200 mls/hr IV Q24H [facility] Stop: 09/14/18 10:59 Last Admin: 08/15/18 11:10 Dose: 100 mls Ertapenem 0.5 gm/ Sodium (Chloride) 100 mls @ 200 mls/hr IV Q24H [facility] Stop: 09/14/18 10:59 Last Admin: 08/16/18 09:37 Dose: 100 mls Midodrine (Proamatine) 10 mg PO Q8 [facility] Stop: 02/11/19 10:44 Last Admin: 08/15/18 16:38 Dose: Not Given Midodrine (Proamatine) 20 mg PO Q8 [facility] Stop: 02/11/19 16:14 Last Admin: 08/16/18 14:44 Dose: 20 mg Ondansetron HCl (Zofran) 4 mg IVP EDNOW ONE Stop: 08/14/18 12:57 Last Admin: 08/14/18 13:26 Dose: 4 mg Point of Care Test Results: CBC CBC Collection Date 08/14/18 CBC Collection Time 13:05 WBC 18.7 RBC 3.65 HGB 11.3 HCT 33.3 PLT 268 Neut # 15.3 Neut 82 LYMPH # 2.9 LYMPH 15.4 Other WBC # 0.5 MCV 91.2 Chemistry 08/14/18 08/14/18 13:54 13:16 POC Sodium 135 mEq/L mEq/L (135-145) POC Potassium 3.9 mEq/L mEq/L (3.3-5.0) POC Chloride 99 mEq/L mEq/L (97-110) POC BUN 25 mg/dL H mg/dL (7-23) POC Creatinine 2.3 mg/dL H mg/dL (0.6-1.0) POC Glucose 128 mg/dL H mg/dL (70-100) POC Troponin I 0.01 ng/mL ng/mL (0.00-0.08) ISTAT H&H 08/14/18 13:16 POC Hgb 11.2 gm/dL L gm/dL (12.6-16.3) POC Hct 33 % L % (38-47) Urine Dip Collection Date 08/14/18 Collection Time 15:45 Specific Moore (1.002-1.030) 1.030 PH (5.0-7.5) 5.5 Leukocytes (Negative) 1+ Nitrites (Negative) Positive Protein (Negative) 2+ Glucose (Negative) Negative Ketones (Negative) Negative Urobilnogen (0.2-1.0 EU) 0.2 Bilirubin (Negative) Negative Blood (Negative) 2+ Departure - Departure Disposition: [facility] Acute Clinical Impression: Acute kidney injury Vomiting Qualifiers: Vomiting type: unspecified Vomiting Intractability: non-intractable Nausea presence: with nausea Qualified Code(s): R11.2 - Nausea with vomiting, unspecified UTI (urinary tract infection) Qualifiers: Urinary tract infection type: acute pyelonephritis Qualified Code(s): N10 - Acute pyelonephritis Condition: Fair
[2018-08-14] MEDS ORDERED: ACETAMINOPHEN 325 MG TAB PO ONE ×2 (14:18→15:53)
--- NOTE | 2018-08-14 15:20 | CPEKG ---
Test Reason : OPEN Blood Pressure : / mmHG Vent. Rate : 000 BPM Atrial Rate : 000 BPM P-R Int : 000 ms QRS Dur : 000 ms QT Int : 000 ms P-R-T Axes : 000 000 000 degrees QTc Int : 000 ms Confirmed by Freedom Cody ([id number]) on 08/14/2018 3:20:19 PM Referred By: Confirmed By:Freedom Cody
[2018-08-14] MEDS ORDERED: NS 1,000 ML IV ONE ×3 (15:54→21:36)
[2018-08-14] MEDS ORDERED: HYDROmorphONE/DILAUDID 1 MG/ML INJ IVP PRN (21:36)
[2018-08-14] MEDS ORDERED: ONDANSETRON DISINTEGRATING 4 MG TAB PO PRN (21:36)
[2018-08-14] MEDS ORDERED: oxyCODONE IR 5 MG TAB PO PRN (21:36)
[2018-08-14] MEDS ORDERED: GUAIFENESIN/DM 10 ML UDCUP PO PRN (21:38)
[2018-08-14] MEDS ORDERED: ALBUTEROL 3 ML DEYVIAL IH PRN (21:38)
[2018-08-14] MEDS ORDERED: BENZONATATE 100 MG CAP PO PRN (21:38)
[2018-08-14] MEDS ORDERED: IPRATROPIUM/ALBUTEROL 3 ML DEYVIAL IH PRN (21:50)
[2018-08-14] MEDS: ATORVASTATIN CALCIUM 20 MG TAB PO SCH (22:09)
[2018-08-14] MEDS: MIRTAZAPINE 30 MG TAB PO SCH (22:09)
[2018-08-14] MEDS: HEPARIN 5,000 UNIT/0.5 ML INJ SC SCH (22:10)
[2018-08-14] MEDS: ACETAMINOPHEN 325 MG TAB PO PRN (22:11)
[2018-08-14] MEDS ORDERED: NS 1,000 ML IV SCH (23:30)
--- NOTE | 2018-08-14 23:33 | PDGENHP ---
History and Physical - Chief Complaint difficulty breathing - History of Present Illness 88yo F with history of CAD, HTN here with 1 day of worsening shortness of breath. No fevers but has had mild chills. Not much cough. Denies any GI symptoms. Has had burning with urination for several weeks now but this hasn't been evaluated. Denies flank pain. She is having a frontal headache. Went to PCP 's office today who sent her to [facility] due to low blood pressure. Interestingly, at [facility] she told the provider she had been having 2 days of nausea and vomiting. She was noted to be febrile with a leukocytosis, elevated lactate prompting sepsis work up. She also had an elevated creatinine. She was given IVF and ceftriaxone for potential urinary infection and sent to [facility] for further management. Case discussed with Dr Freedom Cody at [facility]. History Information - Allergies/Home Medication List Allergies/Adverse Reactions: Sulfa (Sulfonamide Antibiotics) Allergy (Verified 08/14/18 12:49) Home Medications: Aspirin [Aspirin 81mg (*)] 81 mg PO DAILY 01/06/18 [Last Taken 08/13/18] Carvedilol [Coreg (*)] 25 mg PO BIDMEAL 01/06/18 [Last Taken 08/13/18] Herbals/Supplements -Info Only 1 ea PO DAILY 01/06/18 [Last Taken 08/13/18] Multivitamins [Multivitamin (*)] 1 each PO DAILY 01/06/18 [Last Taken 08/13/18] Pantoprazole Sodium [Protonix 40mg (*)] 40 mg PO DAILY 01/06/18 [Last Taken ] Simvastatin [Zocor] 40 mg PO HS 01/06/18 [Last Taken 08/13/18] Mirtazapine [Remeron] 30 mg PO HS 08/14/18 [Last Taken 08/13/18] oxyCODONE HCL/ACETAMINOPHEN [Percocet 10-325 mg Tablet] 1 each PO Q6H PRN [Last Taken 08/13/18] I have personally reviewed and updated: family history, medical history, social history, surgical history - Past Medical History Additional medical history: CAD, chronic stable angina, HTN, CKD - Surgical History Additional surgical history: cervical spine fusion - Family History Positive for: non-pertinent - Social History Smoking Status: Never smoked Alcohol Use: None Drug Use: None Review of Systems Review of Systems: ROS: 10pt was reviewed & negative except for what was stated in HPI & below Physical Exam Physical Exam: Temp Pulse Resp BP Pulse Ox 37.8 C 80 16 75/34 L 93 08/14/18 21:19 08/14/18 21:19 08/14/18 21:19 08/14/18 21:19 08/14/18 21:19 O2 (L/minute) 3.5 Constitutional: appears nourished, uncomfortable Eyes: PERRL, anicteric sclera, EOMI Ears, Nose, Mouth, Throat: no oral mucosal ulcers, dry mucous membranes Cardiovascular: regular rate and rhythym, no murmur, rub, or gallop, No edema Respiratory: no rales or rhonchi, reduced air movement, other (tachypneic), No expiratory wheeze Gastrointestinal: normoactive bowel sounds, soft, non-tender abdomen, no palpable masses Genitourinary: no bladder fullness, no bladder tenderness Skin: warm, normal color, no rashes or abrasions, no fluctuance, no induration, No mottled Musculoskeletal: full muscle strength, no muscle tenderness, normal joint ROM, no joint effusions Neurologic: AAOx3 Psychiatric: interacting appropriately, not anxious, not encephalopathic, thought process linear Lab Data & Imaging Review 08/14/18 23:00 08/14/18 23:00 WBC 13.91 10^3/uL (3.80-9.50) H 08/14/18 23:00 RBC 2.92 10^6/uL (4.18-5.33) L 08/14/18 23:00 Hgb 9.0 g/dL (12.6-16.3) L 08/14/18 23:00 POC Hgb 11.2 gm/dL (12.6-16.3) L 08/14/18 13:16 Hct 27.0 % (38.0-47.0) L 08/14/18 23:00 POC Hct 33 % (38-47) L 08/14/18 13:16 MCV 92.5 fL (81.5-99.8) 08/14/18 23:00 MCH 30.8 pg (27.9-34.1) 08/14/18 23:00 MCHC 33.3 g/dL (32.4-36.7) 08/14/18 23:00 RDW 13.5 % (11.5-15.2) 08/14/18 23:00 Plt Count 158 10^3/uL (150-400) 08/14/18 23:00 VBG Lactic Acid 1.1 mmol/L (0.7-2.1) 08/14/18 23:00 POC Sodium 135 mEq/L (135-145) 08/14/18 13:16 Sodium 134 mEq/L (135-145) L 08/14/18 23:00 POC Potassium 3.9 mEq/L (3.3-5.0) 08/14/18 13:16 Potassium 3.7 mEq/L (3.5-5.2) 08/14/18 23:00 POC Chloride 99 mEq/L (97-110) 08/14/18 13:16 Chloride 108 mEq/L (97-110) 08/14/18 23:00 Carbon Dioxide 20 mEq/l (22-31) L 08/14/18 23:00 Anion Gap 6 mEq/L (6-14) 08/14/18 23:00 POC BUN 25 mg/dL (7-23) H 08/14/18 13:16 BUN 27 mg/dL (7-23) H 08/14/18 23:00 Creatinine 1.8 mg/dL (0.6-1.0) H 08/14/18 23:00 POC Creatinine 2.3 mg/dL (0.6-1.0) H 08/14/18 13:16 Estimated GFR 27 08/14/18 23:00 Glucose 105 mg/dL (70-100) H 08/14/18 23:00 POC Glucose 128 mg/dL (70-100) H 08/14/18 13:16 POC Lactic Acid Tucker 3.9 mmol/L (0.7-2.1) H 08/14/18 15:38 Calcium 7.3 mg/dL (8.5-10.4) L 08/14/18 23:00 Total Bilirubin 0.5 mg/dL (0.1-1.4) 08/14/18 23:00 AST 23 IU/L (14-46) 08/14/18 23:00 ALT 26 IU/L (9-52) 08/14/18 23:00 Alkaline Phosphatase 48 IU/L (38-126) 08/14/18 23:00 POC Troponin I 0.01 ng/mL (0.00-0.08) 08/14/18 13:54 Total Protein 4.5 g/dL (6.3-8.2) L 08/14/18 23:00 Albumin 2.4 g/dL (3.5-5.0) L 08/14/18 23:00 Lipase 15 IU/L (23-300) L 08/14/18 23:00 Urine Color YELLOW 08/14/18 15:45 Urine Appearance MODERATELY TURBID 08/14/18 15:45 Urine pH 5.0 (5.0-7.5) 08/14/18 15:45 Ur Specific Mercer 1.018 (1.002-1.030) 08/14/18 15:45 Urine Protein 2+ (NEGATIVE) H 08/14/18 15:45 Urine Ketones NEGATIVE (NEGATIVE) 08/14/18 15:45 Urine Blood 2+ (NEGATIVE) H 08/14/18 15:45 Urine Nitrate POSITIVE (NEGATIVE) H 08/14/18 15:45 Urine Bilirubin NEGATIVE (NEGATIVE) 08/14/18 15:45 Urine Urobilinogen NEGATIVE EU (0.2-1.0) 08/14/18 15:45 Ur Leukocyte Esterase 3+ (NEGATIVE) H 08/14/18 15:45 Urine RBC 5-10 /hpf (0-3) H 08/14/18 15:45 Urine WBC 50-182 /hpf (0-3) H 08/14/18 15:45 Ur Epithelial Cells TRACE /lpf (NONE-1+) 08/14/18 15:45 Urine Bacteria 1+ /hpf (NONE SEEN) H 08/14/18 15:45 Hyaline Casts 15-25 /lpf (0-1) H 08/14/18 15:45 Urine Mucus TRACE /lpf (NONE-1+) 08/14/18 15:45 Urine Glucose NEGATIVE (NEGATIVE) 08/14/18 15:45 Visualized and Interpreted Chest x-ray results: Yes Visualized and Interpreted imaging results: Yes Interpretation: CXR: no infiltrate or effusion, chronic raised right hemidiaphragm Visualized and Interpreted EKG results: Yes EKG additional interpertation: ECG: NSR, no ischemic ST-T wave changes, inferior Q waves (chronic) Assessment & Plan Assessment: 88yo F with history of CAD, HTN here with various symptoms found to be meeting sepsis criteria. Plan: 1. Severe sepsis: With fever, leukocytosis and elevated lactate and SAMUEL. BP briefly low but responded to IVF. Source likely either pulmonary vs urinary. - Rechecked lactate, ok at 1.1 - Maintenance IVF - Antibiotics per below - Blood and urine cultures pending 2. UTI: Several weeks of symptoms and infected-appearing UA. - Ceftriaxone 1g q24h, follow up culture 3. Acute hypoxemic respiratory insufficiency: CXR without infiltrate. She is tachypneic. This may be driven by increased metabolic demand/respiratory compensation although no longer that acidotic. - Check respiratory viral panel, duonebs PRN, supplemental O2 as needed 4. SAMUEL on CKD: Cr 2.3 up from baseline 1.5-1.6. Suspect prerenal due to infection. - IVF, recheck in AM. Avoid nephrotoxins. 5. Anemia: Somewhat chronic. Monitor H/H. No e/o bleeding. 6. CAD: No chest pain. ECG without ischemic changes. Continue aspirin, statin. VTE ppx: SQH Code: full per discussion with her this evening Dispo: Admit as inpatient as reasonably will require >2 midnights for stabilization given her severe sepsis and age.
--- NOTE | 2018-08-15 01:14 | HOSPPROG ---
Hospitalist Progress Note Assessment/Plan: Hospitalist Night Float Note RN notified earlier that patient blood pressure declined SBP 80s. s/p bolus with subsequent SBP 70s. Patient notes fatigue but otherwise denies any discomfort, chest pain, shortness of breath is improved. Admitted for severe sepsis with UTI. Patient COR discussed and she desires to be a full COR. She is amenable to central line access and pressor support with transfer to ICU. Discussed with Patient son Sumeet and updated. Objective: Vital Signs Temp Pulse Resp BP Pulse Ox 37.2 C 85 16 78/45 L 96 08/15/18 00:00 08/15/18 00:00 08/15/18 00:00 08/15/18 00:00 08/15/18 00:00 Laboratory Results 08/14/18 23:00 08/14/18 23:00 08/13/18 08/14/18 08/15/18 05:59 05:59 05:59 Intake Total 2290 Balance 2290 ICD10 Worksheet Patient Problems: Problems Problem Status Onset Acute kidney injury Acute Vomiting Acute Acute hypoxemic respiratory failure Acute
[2018-08-15] MEDS: NOREPINEPHRINE BITARTRATE 4 MG in NS 500 ML IV SCH ×2 (02:31→16:38)
[2018-08-15 05:36] LABS: PLATELET COUNT 147 10^3/uL (150-400)
[2018-08-15] MEDS: HEPARIN 5,000 UNIT/0.5 ML INJ SC SCH ×3 (05:53→21:41)
[2018-08-15] MEDS ORDERED: ALTEPLASE 2 MG VIAL IVP PRN (07:13)
--- NOTE | 2018-08-15 07:56 | PDMN ---
Medical Necessity Medical necessity: Pt meets inpt criteria per MD order and MCG M-160, Sepsis and Other Febrile Illness, without Focal Infection. 88 y/o admitted w/severe sepsis w/fever, leukocytosis, elev lactate, and hypotensive, + UTI, hypoxemia/ tachypneic requiring 3-4 L suppl O2, SAMUEL on CKD w/creatinine 2.3 up from baseline of 1.5-1.6. Persistent hypotension during nt w/BP as low as 75/34- transferred to ICU, IVF, IV Norepinephrine, IV ABX's, anticipate>2MN for ongoing eval/treatment of above.
[2018-08-15] MEDS: PANTOPRAZOLE SODIUM 40 MG TAB PO SCH (08:10)
[2018-08-15] MEDS: CETIRIZINE 10 MG TAB PO SCH (08:10)
[2018-08-15] MEDS: ASPIRIN 81 MG CHEWABLE TAB PO SCH (08:10)
--- NOTE | 2018-08-15 10:16 | HOSPPROG ---
Hospitalist Progress Note Assessment/Plan: #E coli bacteremia: urinary symptoms. Change to Ertapenem with risk of ESBL. Await culture data #Septic shock: due to above. Wean Levophed as tolerated #SAMUEL on CKD: due to hypotension, dehydration. Avoid nephrotoxic agents #CAD; no chest pain #Normocytic anemia: no signs of bleeding. Monitor #DVT ppx: H ICU admission for pressors, IV abx. Called son, Sumeet, and update clinical status Critical care time spent: > 35 min reviewing records, micro and d/w Dr. Perez and Dr. Duffy Subjective: very tired Objective: Vital Signs Temp Pulse Resp BP Pulse Ox 37.0 C 72 24 H 113/46 L 100 08/15/18 08:00 08/15/18 08:00 08/15/18 08:00 08/15/18 08:00 08/15/18 08:00 Microbiology 08/14/18 23:00 Respiratory Panel (PCR) - Final Nasal, Sinus - Anaerobic Tube/Swab No Organism Detected By Pcr 08/14/18 15:30 Blood Panel (PCR) - Final Blood Escherichia Coli Laboratory Results 08/15/18 05:21 08/15/18 05:21 08/14/18 08/15/18 08/16/18 05:59 05:59 05:59 Intake Total 2672.3 Balance 2672.3 - Time Spent With Patient Time Spent with Patient: greater than 35 minutes Time Spent with Patient: Greater than 35 minutes spent on this patients care, greater than 50% of time spent counseling, educating, and coordinating care regarding the above mentioned plan. - Physical Exam Constitutional: no apparent distress Eyes: PERRL Ears, Nose, Mouth, Throat: moist mucous membranes Cardiovascular: regular rate and rhythym Respiratory: no respiratory distress Gastrointestinal: normoactive bowel sounds, soft, non-tender abdomen Genitourinary: no bladder fullness, no bladder tenderness, other (mild CVA TTP) Skin: warm Musculoskeletal: full muscle strength Neurologic: AAOx3, CN II-XII Intact ICD10 Worksheet Patient Problems: Problems Problem Status Onset Acute kidney injury Acute Vomiting Acute Acute hypoxemic respiratory failure Acute
--- NOTE | 2018-08-15 10:33 | ECHO ---
[email or web address] [address] [address] Main: [phone] Fax: Transthoracic Echocardiogram Name: DORIS WALTER MR#: [id number] Study Date: 08/15/2018 Study Time: 09:41 AM Date of : 1930 Age: 88 year(s) Height: 157.5 cm (62 in.) Weight: 63.5 kg (140 lb.) BSA: 1.64 m2 Gender: Female Examination: Echo Indication: Septic Shock Image Quality: Contrast: Requested by: Erin Mckenna BP: 102 mmHg/79 mmHg Heart Rate: Rhythm: Normal sinus rhythm Indication: Septic Shock Procedure Staff [employer] Professor: Slim Blake RDCS Reading Physician: Mallory Mcelroy MD Requesting Provider: Conclusions: Normal size left ventricle. No LV hypertrophy. Normal global systolic LV function. No regional wall motion abnormality. Grade 1 diastolic dysfunction (abnormal relaxation). Normal size right ventricle. Normal RV function. Trivial aortic valve regurgitation. Trivial tricuspid valve regurgitation. The pulmonary artery pressure is normal. No pericardial effusion. Compared to the previous exam of 01/09/18 there has been no significant change. Measurements: Chambers Valvular Assessment AV/MV Valvular Assessment TV/PV Normal Normal Normal Name Value Range Name Value Range Name Value Range Ao Michelle (MM): 3.1 cm (2.2 cm-3.7 AV Vmax: 1.36 m/s (1 m/s-1.7 TR Vmax: 2.55 mm/s ( - ) cm) m/s) TR PGmax: 26 mmHg ( - ) IVSd (2D): 1.0 cm (0.6 cm-1.1 AV maxP mmHg ( - ) syst. PAP: 31 mmHg ( - ) cm) LVOT Vmax: 0.69 m/s (0.7 m/s-1.1 PV Vmax: 0.84 m/s (0.6 m/s-0.9 LVDd (2D): 4.0 cm (3.9 cm-5.3 m/s) m/s) cm) AR (PHT): 448 ms ( - ) PV PGmax: 3 mmHg ( - ) LVDs (2D): 2.7 cm (2.1 cm-4 MV E Vmax: 0.79 m/s ( - ) cm) MV A Vmax: 0.66 m/s ( - ) LVPWd (2D): 1.0 cm ( - ) MV E/A: 1.20 ( - ) LVEF (2D): 64 (>=54 %) RVDd(2D): 3.1 cm (1.9 cm-3.8 cmmm) Patient: DORIS WALTER Study Date: 08/15/2018 Page 1 of 2 09:41 AM Continued Measurements: Chambers Valvular Assessment AV/MV Valvular Assessment TV/PV Name Value Name Value Name Value LADs Lon.2 cm MV E' Septal: 0.05 m/s CVP (est.): 5 mmHg LA Area: 12.6 cm2 MV E/E' Septal: 16.20 LA Volume: 38 ml MV E/E' Lateral: 12.70 LA Volume Index: 23.2 ml/m2 AR Vmax: 2.51 cm/s Findings: Left Ventricle: Normal size left ventricle. No LV hypertrophy. Normal global systolic LV function. EF is 64 %. No regional wall motion abnormality. Grade 1 diastolic dysfunction (abnormal relaxation). Right Ventricle: Normal size right ventricle. Normal RV function. Left Atrium: The left atrium is normal in size. Right Atrium: The right atrium is normal in size. Mitral Valve: The mitral valve is normal in appearance and function. Trivial mitral valve regurgitation. Aortic Valve: The aortic valve is tri-leaflet. Trivial aortic valve regurgitation. Tricuspid Valve: The tricuspid valve is normal in appearance and function. Trivial tricuspid valve regurgitation. The pulmonary artery pressure is normal. Pulmonic Valve: The pulmonic valve is normal in appearance and function. Aorta: The aorta is normal. Pericardium: No pericardial effusion. Exam Comments: Compared to the previous exam of 01/09/18 there has been no significant change.. (No Signature Object) Patient: DORIS WALTER Study Date: 08/15/2018 Page 2 of 2 09:41 AM [id number]
[2018-08-15] MEDS ORDERED: ERTAPENEM 1 GM in NS 100 ML IV SCH (11:00)
[2018-08-15] MEDS ORDERED: LIDOCAINE 1% 300 MG/30 ML SDV ONE (11:03)
[2018-08-15] MEDS: MIDODRINE HCL 5 MG TAB PO SCH ×4 (11:10→21:41)
--- NOTE | 2018-08-15 11:13 | GCON ---
INFECTIOUS DISEASE CONSULT DATE OF CONSULTATION: 08/15/2018 REQUESTING PHYSICIAN: Dharmesh Munroe MD REASON FOR CONSULT: To assist in management of this 88-year-old female with sepsis from a urinary source. HISTORY OF PRESENT ILLNESS: The patient is an extremely franco 88-year-old female whose previous medical history is notable for the followin. CAD. 2. Hypertension. 3. Recurrent urinary tract infections. The patient states her last urinary tract infection was approximately 3 months ago, treated with ciprofloxacin per the patient. Regarding her present issues, the patient states that she has been feeling unwell now for several days with some mild burning with urination. She went to her primary care doctor at [facility] and was noted to have a temperature of almost 38 with an elevated white blood cell count of 13.9 and low blood pressure. She was also found to have an elevated lactate. Because of this, she was given IV fluid, 1 g of ceftriaxone, and transferred to our main campus for further management. She was admitted to the intensive care unit and started on Levophed. Talking with the patient today, she is in good spirits but continues to feel unwell. She has mild nausea and mild shortness of breath. She denies any flank pain, vomiting, abdominal pain, or other. She does have some burning with urination. Of note, blood cultures drawn yesterday afternoon rapidly grew 4/4 bottles of gram-negative francisco identified as E coli. Susceptibilities are pending. A urine culture is also pending, but a urinalysis revealed 52 to 82 whites, positive nitrate, and blood. She remains on ceftriaxone. PREVIOUS MEDICAL HISTORY: As outlined above. ALLERGIES: Sulfa. MEDICATIONS: Presently include ceftriaxone 1 g IV daily, aspirin 81 mg daily, atorvastatin 20 mg p.o. h.s., Zyrtec 10 mg p.o. daily, Robitussin/mirtazapine 30 mg h.s., Zofran, and norepinephrine. SOCIAL HISTORY: The patient is a previous homemaker. She lives in [place] with her and son. She has 3 cats and a dog. No recent travel within or outside [facility]. FAMILY HISTORY: Noncontributory. REVIEW OF SYSTEMS: As outlined above. Otherwise, 10 systems were reviewed and all are negative. PHYSICAL EXAM: VITAL SIGNS: T-current 37, T-max 39.1, heart rate of 61, blood pressure 107/41, 100% on 3 L. GENERAL: Elderly female, very pleasant, no apparent distress, nontoxic. HEENT: Atraumatic, normocephalic. She is wearing glasses. Pupils equal, round, reactive to light. Extraocular movements are intact. No conjunctival injection. No icterus or petechiae. No sinus process tenderness or discharge from the nares. Mucous membranes are moist. No oral lesions noted. Trachea is midline. No cervical or supraclavicular lymphadenopathy. CARDIOVASCULAR: S1, S2. No rubs, gallops, or murmurs. LUNGS: Clear to auscultation bilaterally with no rales, rhonchi, or wheeze. Poor inspiratory effort. No CVA tenderness. ABDOMEN: Soft. No organomegaly or tenderness to palpation. EXTREMITIES: Evidence of osteoarthritis in her hands and feet, otherwise no clubbing, cyanosis, or edema. SKIN: Warm and dry without rash. No embolic stigmata. NEUROLOGIC: She is alert and oriented x3. No focal deficits. LABORATORY DATA: Microbiologic data: Blood cultures x2 drawn yesterday 11/19 bottles of gram-negative francisco identified as E coli. Urine cultures pending. Nasal PCR negative. BUN and creatinine 28/1.6, down from 1.8 yesterday. Liver function tests are normal. White blood cell count of 16.3, up from 13.9 yesterday, hematocrit of 24, platelet count of 147. IMAGING: Chest x-ray 08/14 shows no evidence of pneumonia. IMPRESSION: 88-year-old female with E. coli sepsis secondary to a urinary source. Given that the patient's physiologic parameters are worsening with increasing pressor needs and leukocytosis, will change Ceftriaxone to Ertapenem in case this represents an extended spectrum beta lactamase E. coli, particularly given recent quinolone use. PLAN: 1. Discontinue ceftriaxone and start ertapenem, 0.5 g daily, dose adjusted for creatinine clearance and renal insufficiency. 2. NB: For gram-negative bacteremia with this clinical scenario, it is no longer necessary to repeat blood cultures to document clearance. Thank you very much for consulting Infectious Diseases. We will continue to follow this patient with you. /[id number]/MODL MTDD
[2018-08-15] MEDS ORDERED: MIDODRINE HCL 5 MG TAB PO SCH (16:03)
--- NOTE | 2018-08-15 16:38 | PDCONSULT ---
Dampener Note: ASSESSMENT 88-year-old female with septic shock due to UTI in the setting of recurrent UTIs # septic shock. Status post adequate fluid resuscitation. Currently requiring IV norepinephrine to maintain maps greater than 65 # UTI, recurrent. Risk factors for MDR given recurrent antibiotic use. Most recently with ciprofloxacin # coronary disease # systemic hypertension # advanced age PLAN # continue norepinephrine via peripheral IV. Patient declined a central line. Given relatively low requirements I feel this is completely reasonable and safe # initiate oral midodrine to speed recovery of vaso dilatory shock and minimize IV vasopressor use # ertapenem as per ID given risk factors for MDR # hold antihypertensives # monitor for decompensation # Feeding - NPO # Analgesia APAP # Sedation propofol # Thromboprophylaxis - SQ hep # Head of bed elevated # Ulcer prophylaxis - NA # Glucose SSI # Skin no skin breakdown # Delirium - delirium precautions Patient is critical ill due to life threatening organ dysfunction and is at high risk for decompensation and . Total critical care time, excluding procedures: 55 min CONSULT I was asked by Dr. Munroe of [facility] to evaluate this patient for septic shock and ICU care HPI Jerry is a very pleasant 88-year-old female who presents the ED after feeling ill for several days with dysuria. She initially presented to her PCP and was promptly sent to the emergency department. She denied syncope, new rashes, chest pain, shortness of breath, leg swelling. The emergency department she was found to be in shock with a leukocytosis and elevated lactate. She is given IV fluids and transferred to the ICU. She has required IV Levophed to maintain maps greater than 65 and her antibiotics were broadened per Dr. Desir of Infectious Disease. Allergies Sulfa antibiotics Past medical history Recurrent UTIs, hypertension, coronary disease Family history No family history of recurrent UTI Social history Lives in [facility]. Has good family support. Nonsmoker nondrinker Review of systems A comprehensive 10 point review of systems was obtained is negative except as per HPI Vitals Reviewed see [facility] for detail GEN: No distress, resting in bed, somnolent but arousable NEURO: A&Ox3, CN 2-12 GI HEENT: PERRL, EOMI, MMM, OP clear NECK: supple, trachea midline CHEST normal shape, no pes excavatum CVS: rrr no m/r/g PULM: CTA B, no wheezes/rales/rhonchi ABD: soft, NT, ND, NABS EXT: no swelling, no cyanosis, full ROM SKIN: warm, dry, intact, no rash PSYCH CAM negative, appropriate affect Labs Reviewed significant for leukocytosis and elevated lactate. Echocardiogram 08/15/2018 LV size and function normal. No LVH. No regional wall motion abnormalities. Grade 1 diastolic dysfunction present. Normal appearing RV size and function. No overt valvular disease.
[2018-08-15] MEDS: ACETAMINOPHEN 325 MG TAB PO PRN (20:16)
[2018-08-15] MEDS: ONDANSETRON 4 MG/2 ML VIAL IVP PRN (20:55)
[2018-08-15] MEDS: ATORVASTATIN CALCIUM 20 MG TAB PO SCH ×3 (21:30→21:42)
[2018-08-15] MEDS: MIRTAZAPINE 30 MG TAB PO SCH (21:42)
[2018-08-16] MEDS: HEPARIN 5,000 UNIT/0.5 ML INJ SC SCH ×3 (06:47→21:38)
[2018-08-16] MEDS: ONDANSETRON 4 MG/2 ML VIAL IVP PRN ×2 (07:42→16:15)
[2018-08-16] MEDS: MIDODRINE HCL 5 MG TAB PO SCH ×2 (07:52→14:44)
[2018-08-16] MEDS ORDERED: ERTAPENEM 0.5 GM in NS 100 ML IV SCH (09:00)
--- NOTE | 2018-08-16 09:21 | PCMIDPN ---
Assessment/Plan: 1. E coli sepsis secondary to urinary source: Continue ertapenem at present dose pending sensitivities of E coli. As per my note yesterday, no need to repeat blood cultures. Pressors being weaned off. Subjective: Quite nauseated presently. Otherwise, feeling better. Objective: Ertapenem 0.5 g IV daily day 2 T-max 37 degrees Vital Signs Temp Pulse Resp BP Pulse Ox 36.6 C 59 L 19 141/52 H 95 08/16/18 08:00 08/16/18 08:00 08/16/18 08:00 08/16/18 08:00 08/16/18 08:00 Microbiology 08/14/18 23:00 Respiratory Panel (PCR) - Final Nasal, Sinus - Anaerobic Tube/Swab No Organism Detected By Pcr 08/14/18 15:30 Blood Panel (PCR) - Final Blood Escherichia Coli Laboratory Results 08/16/18 05:30 08/16/18 05:30 08/15/18 08/16/18 08/17/18 05:59 05:59 05:59 Intake Total 2672.3 2565 Output Total 500 Balance 2672.3 2065 Urine cultures and blood cultures with E coli, susceptibilities pending - Physical Exam General Appearance: alert, other (Feeling nauseated) Abdomen: non-tender, soft Skin: No rash ICD10 Worksheet Patient Problems: Problems Problem Status Onset Acute kidney injury Acute Vomiting Acute Acute hypoxemic respiratory failure Acute
[2018-08-16] MEDS: PANTOPRAZOLE SODIUM 40 MG TAB PO SCH (09:38)
[2018-08-16] MEDS: CETIRIZINE 10 MG TAB PO SCH (09:38)
[2018-08-16] MEDS: ASPIRIN 81 MG CHEWABLE TAB PO SCH (09:38)
--- NOTE | 2018-08-16 12:33 | ASMTCMCOM ---
CM Note CM Note Notes: 88yo female admitted for SOB, N/V, COPD, PNA, UTI. She has a Hx of CAD, HTN, CKD, Anemia. She lives with her son in [place]. May need therapies to eval before discharge to determine discharge needs. CM to follow. Date Signed: 08/16/2018 12:33 PM Electronically Signed By:Esther Nguyen LCSW
--- NOTE | 2018-08-16 12:36 | ASMTLACE ---
MITZI Acuity / Level of Answers: Yes Care: Did the patient have an inpatient admission? Comorbidities - select Answers: Chronic pulmonary disease all that apply Coronary Artery Disease Other Notes: HTN, CKD # of Emergency department Answers: 1-2 visits in the last 6 months Score: 9 Date Signed: 08/16/2018 12:35 PM Electronically Signed By:Esther Nguyen LCSW
--- NOTE | 2018-08-16 13:38 | HOSPPROG ---
Hospitalist Progress Note Assessment/Plan: #E coli bacteremia: urinary symptoms. Change to CTX 2gm daily. No need for repeat blood cultures. #Septic shock: off pressors. Wean off Midodrine in next couple of days #Nausea: PRN anti-emetics #SAMUEL on CKD: due to hypotension, dehydration. Improved, Cr down to 1.3 #CAD; no chest pain #Normocytic anemia: no signs of bleeding. Monitor #DVT ppx: SQH Ok for med-surg. Case discussed with Dr. Duffy Subjective: "nauseated" 1 episode diarrhea Objective: Vital Signs Temp Pulse Resp BP Pulse Ox 36.7 C 50 L 17 140/72 H 95 08/16/18 12:00 08/16/18 12:00 08/16/18 12:00 08/16/18 12:00 08/16/18 12:00 Microbiology 08/14/18 15:45 Urine Culture - Final Urine,Catheterized Escherichia Coli 08/14/18 15:30 Blood Panel (PCR) - Final Blood Escherichia Coli 08/14/18 23:00 Respiratory Panel (PCR) - Final Nasal, Sinus - Anaerobic Tube/Swab No Organism Detected By Pcr Laboratory Results 08/16/18 05:30 08/16/18 05:30 08/15/18 08/16/18 08/17/18 05:59 05:59 05:59 Intake Total 2672.3 2565 Output Total 500 Balance 2672.3 2065 - Time Spent With Patient Time Spent with Patient: greater than 35 minutes Time Spent with Patient: Greater than 35 minutes spent on this patients care, greater than 50% of time spent counseling, educating, and coordinating care regarding the above mentioned plan. - Physical Exam Constitutional: other (ill-appearing) Eyes: PERRL Ears, Nose, Mouth, Throat: moist mucous membranes Cardiovascular: regular rate and rhythym Respiratory: no respiratory distress Gastrointestinal: normoactive bowel sounds Genitourinary: no bladder fullness Skin: warm Musculoskeletal: full muscle strength Neurologic: AAOx3, CN II-XII Intact Psychiatric: interacting appropriately ICD10 Worksheet Patient Problems: Problems Problem Status Onset Acute kidney injury Acute Vomiting Acute Acute hypoxemic respiratory failure Acute
[2018-08-16] MEDS ORDERED: NS 1,000 ML IV SCH (13:45)
--- NOTE | 2018-08-16 14:08 | PDINTPN ---
Choker Setter Progress Note Assessment/Plan: ASSESSMENT 88-year-old female with septic shock due to UTI in the setting of recurrent UTIs # septic shock. Improving but still on low-dose norepinephrine this a.m. # UTI, recurrent. Risk factors for MDR given recurrent antibiotic use. Most recently with ciprofloxacin # E coli bacteremia # coronary disease # systemic hypertension # advanced age PLAN # continue norepinephrine via peripheral IV. Patient declined a central line. Given relatively low requirements I feel this is completely reasonable and safe # initiate oral midodrine to speed recovery of vaso dilatory shock and minimize IV vasopressor use # Initiate midodrine 20 mg p.o. Q 8 hr and titrate as necessary to help shorten the duration of IV vasopressor use in the recovery phase of septic shock. CHEST , Volume 149 , Issue 6 , 1380 - 1383. CHEST , Volume 149 , Issue 6 , 1582 - 1583 # wean midodrine as BP tolerates # ertapenem as per ID given risk factors for MDR # hold antihypertensives # monitor for decompensation # Feeding - regular diet # Analgesia APAP # Sedation none # Thromboprophylaxis - SQ hep # Head of bed elevated # Ulcer prophylaxis - NA # Glucose SSI # Skin no skin breakdown # Delirium - delirium precautions Labs Reviewed Cultures Urine and blood cultures with E coli, final sensitivities pending 08/16/18 14:07 Objective: Vital Signs Temp Pulse Resp BP Pulse Ox 36.7 C 50 L 17 140/72 H 95 08/16/18 12:00 08/16/18 12:00 08/16/18 12:00 08/16/18 12:00 08/16/18 12:00 Microbiology 08/14/18 15:45 Urine Culture - Final Urine,Catheterized Escherichia Coli 08/14/18 15:30 Blood Panel (PCR) - Final Blood Escherichia Coli 08/14/18 23:00 Respiratory Panel (PCR) - Final Nasal, Sinus - Anaerobic Tube/Swab No Organism Detected By Pcr Laboratory Results 08/16/18 05:30 08/16/18 05:30 08/15/18 08/16/18 08/17/18 05:59 05:59 05:59 Intake Total 2672.3 2565 300 Output Total 500 Balance 2672.3 2065 300 Physical Exam - Physical Exam General Appearance: alert, no apparent distress EENT: PERRL/EOMI, normal ENT inspection Neck: non-tender, full range of motion, supple Respiratory: chest non-tender, lungs clear, normal breath sounds Cardiac/Chest: normal peripheral pulses, regular rate, rhythm Abdomen: normal bowel sounds, non-tender Skin: normal color, warm/dry, No cyanosis Extremities: non-tender, No normal inspection, No swelling Neuro/Psych: no motor/sensory deficits, alert, normal mood/affect, oriented x 3 , other (Hard of hearing) ICD10 Worksheet Patient Problems: Problems Problem Status Onset Acute kidney injury Acute Vomiting Acute Acute hypoxemic respiratory failure Acute
[2018-08-16] MEDS: ATORVASTATIN CALCIUM 20 MG TAB PO SCH (21:36)
[2018-08-16] MEDS: MIRTAZAPINE 30 MG TAB PO SCH (21:37)
[2018-08-16] MEDS ORDERED: MIDODRINE HCL 5 MG TAB PO SCH (22:00)
[2018-08-17] MEDS: MELATONIN 3 MG TAB PO SCH ×2 (00:26→21:25)
--- NOTE | 2018-08-17 09:01 | PCMIDPN ---
Assessment/Plan: Assessment: E coli bacteremia secondary to UTI. Patient has a significantly susceptible organism. However due to the patient's advanced age it would be unwise to switch her to oral fluoroquinolones going to the confusion, falls and arrhythmia issues that go along with use of this drug in the elderly population. We will plan on continuing IV ceftriaxone for total of 10 days. Patient will need a PICC line prior to discharge. Anticipate discharge in the next 1-2 days if strength and appetite improved. Plan: 1. Continue IV ceftriaxone. 2. Follow up on strength and appetite as well as mobility. Patient lives independently at home and her son lives in the same house and assists her with most issues. 08/17/18 09:12 Subjective: This is a pleasant 88 year-old female, with hx of CAD, HTN, and recurrent UTIs, who is seen for follow-up of E. coli sepsis secondary to urinary source. Pt is resting in her bed and states "I am doing better." She lives in [place] with her son and [place]. Admits to "a little" strength, but "still feels weak" compared to her baseline. Reports associated loss in appetite. Objective: ceftriaxone # 1 Vital Signs Temp Pulse Resp BP Pulse Ox 37.2 C 66 16 169/94 H 90 L 08/17/18 07:35 08/17/18 07:35 08/17/18 07:35 08/17/18 07:35 08/17/18 07:35 Microbiology 08/14/18 15:30 Blood Panel (PCR) - Final Blood Escherichia Coli 08/14/18 15:45 Urine Culture - Final Urine,Catheterized Escherichia Coli Laboratory Results 08/17/18 04:40 08/17/18 04:40 08/16/18 08/17/18 08/18/18 05:59 05:59 05:59 Intake Total 2565 1288 Output Total 500 200 25 Balance 2065 1088 -25 Microbiology: 08/14/18 Urine cx grew, E. coli > 100K. 08/14/18 Blood cx 2/2 sets grew, E. coli. - Physical Exam General Appearance: alert, no apparent distress Respiratory: lungs clear, normal breath sounds Cardiac/Chest: regular rate, rhythm Skin: normal color, warm/dry - Line/s PIV Lines: No drainage, No erythema ICD10 Worksheet Patient Problems: Problems Problem Status Onset Acute kidney injury Acute UTI (urinary tract infection) Acute Vomiting Acute Acute hypoxemic respiratory failure Acute
[2018-08-17] MEDS: ONDANSETRON 4 MG/2 ML VIAL IVP PRN (09:37)
[2018-08-17] MEDS: HEPARIN 5,000 UNIT/0.5 ML INJ SC SCH ×3 (09:37→21:24)
[2018-08-17] MEDS: CETIRIZINE 10 MG TAB PO SCH ×2 (09:37→10:02)
[2018-08-17] MEDS: ASPIRIN 81 MG CHEWABLE TAB PO SCH ×2 (09:37→10:02)
[2018-08-17] MEDS: PANTOPRAZOLE SODIUM 40 MG TAB PO SCH ×2 (09:37→10:02)
--- NOTE | 2018-08-17 10:14 | ASMTCMCOM ---
CM Note CM Note Notes: CM spoke to Dr. Restrepo regarding d/c POC. Anticipate pt will be here for another day or two. Pt will require ivabx at time of d/c. Pt can either come to [facility] outpatient infusion center vs home w/ ivabx. Referral sent to [facility] and [facility]. [facility] is able to accept. [facility] will run insurance to make sure pt is covered. CM to follow. Plan: ivabx infusion at home vs [facility]E outpatient infusion Date Signed: 08/17/2018 10:13 AM Electronically Signed By:LAMAR Link
--- NOTE | 2018-08-17 15:50 | HOSPPROG ---
Hospitalist Progress Note Assessment/Plan: #E coli bacteremia: urinary symptoms. -Day 4 abx. No need for repeat blood cultures. #Norovirus/EPEC: supportive care #Septic shock: off pressors. Wean off Midodrine in next couple of days #Nausea: PRN anti-emetics. Gentle IVFs #SAMUEL on CKD: due to hypotension, dehydration. Improved, Cr down to 1.3 #CAD; no chest pain #Normocytic anemia: no signs of bleeding. #DVT ppx: SQH Ok for med-surg. Case discussed with Dr. Duffy Subjective: nauseated, 1 loose stool Objective: Vital Signs Temp Pulse Resp BP Pulse Ox 36.9 C 53 L 16 166/82 H 94 08/17/18 12:00 08/17/18 12:00 08/17/18 12:00 08/17/18 12:00 08/17/18 12:00 Microbiology 08/17/18 08:00 Gastrointestinal Tract Panel (PCR) - Final Stool E.coli Enteropathogenic(Epec) Norovirus Gi/Gii 08/14/18 15:30 Blood Culture - Final Blood Escherichia Coli 08/14/18 15:30 Blood Culture - Final Blood Escherichia Coli Blood Panel (PCR) - Final Escherichia Coli 08/14/18 15:45 Urine Culture - Final Urine,Catheterized Escherichia Coli Laboratory Results 08/17/18 04:40 08/17/18 04:40 08/16/18 08/17/18 08/18/18 05:59 05:59 05:59 Intake Total 2565 1288 Output Total 500 200 25 Balance 2065 1088 -25 - Time Spent With Patient Time Spent with Patient: greater than 35 minutes Time Spent with Patient: Greater than 35 minutes spent on this patients care, greater than 50% of time spent counseling, educating, and coordinating care regarding the above mentioned plan. - Physical Exam Constitutional: other (tired-appearing) Ears, Nose, Mouth, Throat: moist mucous membranes Cardiovascular: regular rate and rhythym Respiratory: no respiratory distress Gastrointestinal: normoactive bowel sounds Genitourinary: no bladder fullness, other (mild CVA TTP) Skin: warm Musculoskeletal: full muscle strength Neurologic: AAOx3, CN II-XII Intact Psychiatric: interacting appropriately ICD10 Worksheet Patient Problems: Problems Problem Status Onset Acute kidney injury Acute UTI (urinary tract infection) Acute Vomiting Acute Acute hypoxemic respiratory failure Acute
[2018-08-17] MEDS ORDERED: NS 1,000 ML IV SCH (16:00)
[2018-08-17] MEDS: CARVEDILOL 25 MG TAB PO SCH ×2 (16:53→17:07)
[2018-08-17] MEDS: MIRTAZAPINE 30 MG TAB PO SCH (21:25)
[2018-08-17] MEDS: ATORVASTATIN CALCIUM 20 MG TAB PO SCH (21:25)
[2018-08-18] MEDS: HEPARIN 5,000 UNIT/0.5 ML INJ SC SCH ×3 (05:48→20:15)
[2018-08-18] MEDS ORDERED: ALTEPLASE 2 MG VIAL IVP PRN (09:12)
[2018-08-18] MEDS: CARVEDILOL 25 MG TAB PO SCH ×2 (09:46→17:21)
[2018-08-18] MEDS: ASPIRIN 81 MG CHEWABLE TAB PO SCH (09:46)
[2018-08-18] MEDS: CETIRIZINE 10 MG TAB PO SCH (09:46)
[2018-08-18] MEDS: PANTOPRAZOLE SODIUM 40 MG TAB PO SCH (09:47)
--- NOTE | 2018-08-18 13:25 | HOSPPROG ---
Hospitalist Progress Note Assessment/Plan: #E coli bacteremia: urinary symptoms. -Sensitive to LQ, but this is high-risk medication given her age and risk for encephalopathy and falls -Day 5 abx. No need for repeat blood cultures. PICC line ordered for home infusion #Norovirus/EPEC: supportive care #Septic shock: off pressors and midodrine #Nausea: PRN anti-emetics. Gentle IVFs #SAMUEL on CKD: due to hypotension. Cr down to 1.1 #CAD: no chest pain #Normocytic anemia: no signs of bleeding. #DVT ppx: SQH #Disp: DC home with home abx once PICC line placed Subjective: No BM today. No N/V Objective: Vital Signs Temp Pulse Resp BP Pulse Ox 36.6 C 67 16 174/89 H 91 L 08/18/18 11:23 08/18/18 11:23 08/18/18 11:23 08/18/18 11:23 08/18/18 11:23 Microbiology 08/17/18 08:00 Gastrointestinal Tract Panel (PCR) - Final Stool E.coli Enteropathogenic(Epec) Norovirus Gi/Gii 08/14/18 15:30 Blood Culture - Final Blood Escherichia Coli 08/14/18 15:30 Blood Culture - Final Blood Escherichia Coli Blood Panel (PCR) - Final Escherichia Coli Laboratory Results 08/18/18 05:33 08/18/18 05:33 08/17/18 08/18/18 08/19/18 05:59 05:59 05:59 Intake Total 1288 450 300 Output Total 200 25 Balance 1088 425 300 - Time Spent With Patient Time Spent with Patient: greater than 35 minutes Time Spent with Patient: Greater than 35 minutes spent on this patients care, greater than 50% of time spent counseling, educating, and coordinating care regarding the above mentioned plan. - Physical Exam Constitutional: other (appears brighter) Eyes: PERRL Ears, Nose, Mouth, Throat: moist mucous membranes Cardiovascular: regular rate and rhythym, No edema Respiratory: no respiratory distress Gastrointestinal: normoactive bowel sounds Genitourinary: no bladder fullness Skin: warm Musculoskeletal: full muscle strength Neurologic: AAOx3, CN II-XII Intact Psychiatric: interacting appropriately ICD10 Worksheet Patient Problems: Problems Problem Status Onset Acute kidney injury Acute UTI (urinary tract infection) Acute Vomiting Acute Acute hypoxemic respiratory failure Acute
[2018-08-18] MEDS: MELATONIN 3 MG TAB PO SCH (20:15)
[2018-08-18] MEDS: MIRTAZAPINE 30 MG TAB PO SCH (20:15)
[2018-08-18] MEDS: ATORVASTATIN CALCIUM 20 MG TAB PO SCH (20:16)
[2018-08-19] MEDS: HEPARIN 5,000 UNIT/0.5 ML INJ SC SCH ×2 (06:15→13:03)
[2018-08-19] MEDS: PANTOPRAZOLE SODIUM 40 MG TAB PO SCH (08:25)
[2018-08-19] MEDS: CARVEDILOL 25 MG TAB PO SCH (08:25)
[2018-08-19] MEDS: ASPIRIN 81 MG CHEWABLE TAB PO SCH (08:25)
[2018-08-19] MEDS: CETIRIZINE 10 MG TAB PO SCH (08:25)
--- NOTE | 2018-08-19 08:56 | HOSPPROG ---
Hospitalist Progress Note Assessment/Plan: #E coli bacteremia: urinary symptoms. -Sensitive to LQ, but this is high-risk medication given her age and risk for encephalopathy and falls -Day 01/25 abx. No need for repeat blood cultures. PICC line ordered, plan to DC today #Norovirus/EPEC: supportive care. Min stools #Hypertension: persistently up here. Add Norvasc #Septic shock: off pressors and midodrine #Nausea: PRN anti-emetics. Gentle IVFs #SAMUEL on CKD: due to hypotension. Cr down to 1.1 #CAD: no chest pain #Normocytic anemia: no signs of bleeding. #DVT ppx: SQH #Disp: hope to DC home today. No PT needs Subjective: eating well. No abd pain Objective: Vital Signs Temp Pulse Resp BP Pulse Ox 37.0 C 78 16 184/85 H 93 08/19/18 08:00 08/19/18 08:25 08/19/18 08:00 08/19/18 08:47 08/19/18 08:00 Laboratory Results 08/18/18 05:33 08/18/18 05:33 08/18/18 08/19/18 08/20/18 05:59 05:59 05:59 Intake Total 450 850 Output Total 25 550 Balance 425 300 - Time Spent With Patient Time Spent with Patient: greater than 35 minutes Time Spent with Patient: Greater than 35 minutes spent on this patients care, greater than 50% of time spent counseling, educating, and coordinating care regarding the above mentioned plan. - Physical Exam Constitutional: no apparent distress Eyes: PERRL Ears, Nose, Mouth, Throat: moist mucous membranes Cardiovascular: regular rate and rhythym Respiratory: no respiratory distress Gastrointestinal: normoactive bowel sounds, soft, non-tender abdomen Genitourinary: No no bladder tenderness Skin: warm Musculoskeletal: full muscle strength Neurologic: AAOx3 Psychiatric: interacting appropriately ICD10 Worksheet Patient Problems: Problems Problem Status Onset Acute kidney injury Acute UTI (urinary tract infection) Acute Vomiting Acute Acute hypoxemic respiratory failure Acute
[2018-08-19] MEDS ORDERED: amLODIPine BESYLATE 5 MG TAB PO SCH (09:00)
--- NOTE | 2018-08-19 10:22 | PDIAF ---
- Diagnosis Diagnosis: E coli bacteremia Code Status: Full Code - Medication Management Agent Antibiotics: Ceftriaxone 1 g IV daily Agent Antibiotic Stop Date: 08/23/18 Discharge Medications: electronically signed and located in the Home Medication List. PICC Care - Routine: Yes - Orders Isolation Type: Contact Isolation, Droplet Isolation Diet Recommendation: no restrictions on diet Diet Texture: Regular Texture Diet - Labs/Radiology CBC w/diff Date: 08/20/18 CMP Date: 08/20/18 Call or Fax Lab and Imaging Results to: Dr. Mena, - Follow Up Care Current Providers and Referrals: Jojo Martinez, SUEDING MACHINE TENDER [Primary Care Provider] - As per Instructions
--- NOTE | 2018-08-19 10:28 | PCMIDPN ---
Assessment/Plan: Assessment/Plan: * E coli sepsis likely of urinary etiology: Clinically improved with antibiotic therapy. Completing 10 days of antibiotic therapy which will be continued as daily ceftriaxone post hospital discharge (day # 01/25). Reviewed with case management regarding need for 4 additional days of ceftriaxone as outpatient. * Norovirus/EPEC: Symptoms resolving. 08/19/18 10:26 Subjective: Patient feels significantly better. No ongoing nausea or vomiting. Notes mild diarrhea. Objective: Vital Signs Temp Pulse Resp BP Pulse Ox 37.0 C 78 16 184/85 H 93 08/19/18 08:00 08/19/18 08:25 08/19/18 08:00 08/19/18 08:47 08/19/18 08:00 Laboratory Results 08/18/18 05:33 08/18/18 05:33 08/18/18 08/19/18 08/20/18 05:59 05:59 05:59 Intake Total 450 850 Output Total 25 550 400 Balance 425 300 -400 Ceftriaxone 1 g IV Q 24 hr (antibiotic day # 01/25) - Physical Exam General Appearance: alert, no apparent distress EENT: No scleral icterus, No thrush Respiratory: lungs clear, No respiratory distress Cardiac/Chest: regular rate, rhythm Abdomen: non-tender, No distended - Time Spent With Patient Time Spent with Patient: greater than 25 minutes Time Spent with Patient: Greater than 25 minutes spent on this patients care, greater than 50% of time spent counseling, educating, and coordinating care regarding the above mentioned plan. ICD10 Worksheet Patient Problems: Problems Problem Status Onset Acute kidney injury Acute UTI (urinary tract infection) Acute Vomiting Acute Acute hypoxemic respiratory failure Acute
--- NOTE | 2018-08-19 10:50 | ASMTCMCOM ---
CM Note CM Note Notes: Spoke w/pt and son, she will dc home w/[facility] for home infusion and [facility] RN. Son is able to help with medication if needed. DC Plan: [facility] + [facility] Date Signed: 08/19/2018 10:49 AM Electronically Signed By:Jody Dang RN
[2018-08-19 11:41] VITALS: BP 168/106
--- NOTE | 2018-08-19 11:56 | PDIAF ---
- Diagnosis Diagnosis: E coli bacteremia Code Status: Full Code - Medication Management Conference Center Manager Antibiotics: Ceftriaxone 1 g IV daily Conference Center Manager Antibiotic Stop Date: 08/23/18 Discharge Medications: electronically signed and located in the Home Medication List. PICC Care - Routine: Yes - Orders Services needed: Home Care, Registered Nurse Home Care Face to Face: I certify that this patient was under my care and that I had the required [id number] encounter meeting the encounter requirements on the discharge day. My findings support the fact that the patient is homebound as defined in Home Care Face to Face Continued: [facility] Chapter 7 Medicare Benefits Manual 30.1.1 , The condition of the patient is such that there exists a normal inability to leave home and consequently, leaving home would require a considerable and taxing effort. Isolation Type: Contact Isolation, Droplet Isolation Diet Recommendation: no restrictions on diet Diet Texture: Regular Texture Diet Additional Instructions: Follow up with your doctor for blood pressure check. Norvasc may need to be increased. - Labs/Radiology CBC w/diff Date: 08/20/18 CMP Date: 08/20/18 Call or Fax Lab and Imaging Results to: Dr. Mena, - Follow Up Care Current Providers and Referrals: Jojo Martinez, INSURANCE ANALYST [Primary Care Provider] - As per Instructions
--- NOTE | 2018-08-19 12:07 | GDS ---
DISCHARGE DIAGNOSES: 1. Escherichia coli bacteremia. 2. Urinary tract infection. 3. Norovirus. 4. Escherichia coli, proteus, enterobacter, and Klebsiella pneumoniae gastrointestinal infection. 5. Septic shock. 6. Hypertension. 7. Nausea. 8. Acute kidney injury on chronic kidney disease. 9. Coronary artery disease. 10. Normocytic anemia. CONSULTATIONS: Infectious Disease portfolio strategist. HISTORY OF PRESENT ILLNESS: An 88-year-old female with coronary artery disease, hypertension with 1 day worsening shortness of breath. No fevers but some mild chills. Has had burning with urination f or several weeks, but this has not been evaluated. Denies flank pain. She went to her PCP, who sent her to [facility], was noted to have a low blood pressure. HOSPITAL COURSE BY PROBLEM: 1. Septic shock: Secondary to E coli bacteremia from a urinary source. She was treated with presso rs briefly, is now hemodynamically stable. She will complete 10 days of ceftriaxone. Considered Lev aquin, but this is high-risk medication, given her age, which could lead to encephalopathy and falls. She has a PICC line in place and will continue 4 more days of antibiotics. 2. Norovirus/E coli/EPEK GI infection: Symptoms much improved. Supportive care. 3. Hypertension, now off pressors for several days: Blood pressures remained persistently elevated greater than 160. Continue Coreg and add Norvasc. She should follow up with her PCP for up titratio n. 4. Nausea secondary to acute illness, resolved. 5. Acute kidney injury on chronic kidney disease due to hypotension, nausea, vomiting, diarrhea: Cr eatinine stable at 1.1. 6. Normocytic anemia: H and H stable. DISPOSITION: Patient is stable for discharge home with her son and Home Health. NEW MEDICATIONS: 1. Ceftriaxone 4 days. 2. Norvasc 5 mg daily. FOLLOWUP: Primary care physician for blood pressure check. PHYSICAL EXAM TODAY: VITAL SIGNS: Afebrile. Blood pressure is 180s over 85, heart rates in the 70s , respirations 16, 91% on room air. GENERAL: She is well-appearing, smiling, in no acute distress. HEENT: PERRLA. Moist mucous membranes. CV: Regular rate and rhythm. LUNGS: Clear. ABDOMEN: S oft, nontender. GI: No Morin. No suprapubic tenderness. MUSCULOSKELETAL: 5/5 upper and lower ext remity strengths. NEURO: 2 through 12 intact. PSYCH: Alert and oriented x3. TIME SPENT ON DISCHARGE: Greater than 30 minutes at bedside with patient in counseling on blood pres sure, followup, and discharge plan. /[id number]/MODL
--- NOTE | 2018-08-19 12:43 | ASMTDCNOTE ---
Case Management Discharge Discharge Order Complete? Answers: Yes Patient to Obtain Answers: Other Notes: [facility] Medications Transportation Arranged Answers: Family/Friends Faxed Final Orders Answers: Yes Family Notified Answers: Yes Discharge Comments Notes: D/w MD, pt will dc home w/help from son Mi from [facility] was here and met with pt, Marysol from [facility] notified that pt will dc today. First antibiotic dose due 08/20, RN will call son to schedule. Date Signed: 08/19/2018 12:42 PM Electronically Signed By:Jody Dang RN
--- NOTE | 2018-08-20 17:00 | ASDISCHSUM ---
Discharge Information Plan Status:IV ABX/Infusion Medically Cleared to Leave: Discharge Date:08/19/2018 02:35 PM CM D/C Disposition:Home Health Service ADT D/C Disposition:Home Health Service Projected Discharge Date:08/19/2018 11:00 AM Transportation at D/C:Family Discharge Delay Reason: Follow-Up Date:08/19/2018 11:00 AM Discharge Slot: Final Diagnosis:SOB, N/V, COPD, PNA Placement Information Referral Type:Home Infusion Referral ID:[id number] Provider Name:[facility] Address 1:[address] Address 2: City:[place] Selection Factors: State:[place] Referral Type:*Home Health Care Services Referral ID:[id number] Provider Name:[facility] Address 1:[address] Address 2: City:[place] Selection Factors: State:[place] Patient Contact Information Contact Name:PINA Relationship:Son Address:[address] City:[facility] Phone: State/Zip Code:[place] [address] Email: Financial Information Financial Class:Medicare Advantage Plans Primary Plan Desc:[facility] MEDICARECOMPLETE Primary Plan Number:[id number] Secondary Plan Desc: Secondary Plan Number: Assessment Information [facility] CM Progress Note CM Note CM Note Notes: 88yo female admitted for SOB, N/V, COPD, PNA, UTI. She has a Hx of CAD, HTN, CKD, Anemia. She lives with her son in [place]. May need therapies to eval before discharge to determine discharge needs. CM to follow. Date Signed: 08/16/2018 12:33 PM Electronically Signed By:Esther Nguyen LCSW LACE LACE Acuity / Level of Answers: Yes Care: Did the patient have an inpatient admission? Comorbidities - select Answers: Chronic pulmonary disease all that apply Coronary Artery Disease Other Notes: HTN, CKD # of Emergency department Answers: 1-2 visits in the last 6 months Score: 9 Date Signed: 08/16/2018 12:35 PM Electronically Signed By:Esther Nguyen LCSW [facility] CM Progress Note CM Note CM Note Notes: CM spoke to Dr. Restrepo regarding d/c POC. Anticipate pt will be here for another day or two. Pt will require ivabx at time of d/c. Pt can either come to [facility] outpatient infusion center vs home w/ ivabx. Referral sent to eri and [facility]. [facility] is able to accept. [facility] will run insurance to make sure pt is covered. CM to follow. Plan: ivabx infusion at home vs [facility]E outpatient infusion Date Signed: 08/17/2018 10:13 AM Electronically Signed By:LAMAR Link [facility] CM Progress Note CM Note CM Note Notes: Spoke w/pt and son, she will dc home w/[facility] for home infusion and [facility] RN. Son is able to help with medication if needed. DC Plan: [facility] + [facility] Date Signed: 08/19/2018 10:49 AM Electronically Signed By:Jody Dang RN Case Management Discharge Plan Note Case Management Discharge Discharge Order Complete? Answers: Yes Patient to Obtain Answers: Other Notes: [facility] Transportation Arranged Answers: Family/Friends Faxed Final Orders Answers: Yes Family Notified Answers: Yes Discharge Comments Notes: D/w MD, pt will dc home w/help from son Ron. Stark from [facility] was here and met with pt, Marysol from [facility] notified that pt will dc today. First antibiotic dose due 08/20, RN will call son to schedule. Date Signed: 08/19/2018 12:42 PM Electronically Signed By:Jody aDng RN Intervention Information Intervention Type:*IM-Signed Date of Service:08/19/2018 01:51 PM Patient Type:Inpatient Staff Member:Sofy Cooney Hours: Discipline: Severity: Comment:
== END 2018-08-19 14:35 | disposition home health service (06) | DRG 872 ==
LOC: CED 12:32 → CEDHOLD 14:29 → F1N 18:44 → F2N 08-15 01:15 → F3E 08-16 15:05
PROVIDERS: ADMIT Internal Medicine; ATTEND Internal Medicine
PROC: 02HV33Z Insertion of Infusion Device into Superior Vena Cava, Percutaneous Approach (ICD-10-PCS; principal; 2018-08-19)
DX: A41.51 Sepsis due to Escherichia coli [E. coli] (principal); R65.20 Severe sepsis without septic shock; N39.0 Urinary tract infection, site not specified; N17.9 Acute kidney failure, unspecified; A08.11 Acute gastroenteropathy due to Norwalk agent; I12.9 Hypertensive chronic kidney disease with stage 1 through stage 4 chronic kidney disease, or unspecified chronic kidney disease; N18.9 Chronic kidney disease, unspecified; I25.10 Atherosclerotic heart disease of native coronary artery without angina pectoris; B96.4 Proteus (mirabilis) (morganii) as the cause of diseases classified elsewhere; B96.1 Klebsiella pneumoniae [K. pneumoniae] as the cause of diseases classified elsewhere; D64.9 Anemia, unspecified; M54.9 Dorsalgia, unspecified
CPT/HCPCS: 70450-PO; 71046-PO; 82435-PO; 82565-PO; 82947-PO; 83605-PO; 84132-PO; 84295-PO; 84484-PO; 84520-PO; 85014-PO; 96365; C1751; J0696; J1335; J1644; J2405

== ENCOUNTER → 2018-09-01 | Outpatient (CLI) | payer OTHER | LOC: BRMIMAGING 12:57 | PROVIDERS: ATTEND Nurse Practitioner | DX: I80.8 Phlebitis and thrombophlebitis of other sites (principal) | CPT/HCPCS: 93971-PO ==